=== PATIENT | female | born 1935 | race Caucasian/White ===

== ENCOUNTER 2019-07-09 10:27 | Inpatient (IN) | payer MEDICARE, SELFPAY ==
[2019-07-09] VITALS (56 sets, daily range): BP systolic 92–176; BP diastolic 41–95; PULSE 64–104; RESP 14–37; TEMP 36.4–36.9; O2SAT 89–100; BMI 29.2
--- NOTE | 2019-07-09 10:30 | W.ED.GENADLT ---
HPI - General Adult General: Stated complaint: BILAT HIP AND RIGHT WRIST PAIN S/P FALL Time Seen by Provider: 07/09/19 10:30 Discharge Plan Discharge Prescriptions: No Action metformin 1,000 mg tablet 1,000 mg PO BID Qty: 60 RF: 0 Coding Level of Care Code ED White Spooler for Jose King
--- NOTE | 2019-07-09 10:35 | ED_ITS ---
Entered by Debbie Humphreys, acting as scribe for Adam Quiles DO HPI - Fall General: Chief Complaint: Fall Stated Complaint: BILAT HIP AND RIGHT WRIST PAIN S/P FALL Time Seen by Provider: 07/09/19 10:30 History of Present Illness: HPI Narrative: 83yo female presents with bilateral hip and wrist pain after fall. She tripped over object in the floor. Patient denies any head injury or neck pain. Associated symptoms-after fall: Denies abdominal pain or chest pain Review of Systems Const: Denies: fever, chills, body aches, change in appetite, fatigue or malaise ENMT: Denies: throat pain, ear pain, nasal discharge or nasal congestion Card: Denies: chest pain, edema, shortness of breath on exertion or shortness of breath when lying down Resp: Denies: shortness of breath, productive cough or non-productive cough GI: Denies: abdominal pain, nausea, vomiting, vomiting blood, coffee grounds in vomit, diarrhea, constipation, bloating, blood in stool or black tarry stool : Denies: flank pain, difficulty urinating, painful urination, urinary frequency or urinary urgency Skin/Breast: Denies: rash or itching PFSH ED PFSH: Medical History (Updated 07/11/19 @ 00:16 by Adam Quiles DO) Diabetes Social History Smoking and tobacco status: former smoker Physical Exam Const: GENERAL APPEARANCE: cooperative and comfortable ORIENTATION/CONSCIOUSNESS: Yes awake, Yes oriented to person, Yes oriented to place and Yes oriented to time HENMT: COMMON NORMALS: normocephalic, head/scalp atraumatic, hearing grossly normal bilaterally, external ears normal, EAC's normal, TM's normal bilaterally, nasal mucous membranes and turbinates normal, moist oral mucous membranes and oropharynx normal HEAD & SCALP: normocephalic and atraumatic NOSE: nasal mucous membranes and turbinates normal EXTERNAL EAR: Yes external ears normal EXTERNAL AUDITORY CANAL: EAC's normal TYMPANIC MEMBRANE: TM's normal bilaterally Eye: COMMON NORMALS: PERRL, EOMs intact bilaterally, conjunctivae normal and no scleral icterus CONJUNCTIVA: Yes conjunctivae normal PUPIL: Yes PERRL Neck/C-Spine: COMMON NORMALS: full ROM, no lymphadenopathy, supple and no JVD OTHER: patient notes no neck pain Lymph: LYMPHATIC: no lymphadenopathy noted and no lymphedema noted Resp: COMMON NORMALS: normal respiratory effort, no retractions, no use of accessory muscles and clear to auscultation bilaterally AUSCULTATION: clear to auscultation bilaterally Cardio: COMMON NORMALS: no JVD, regular rate, regular rhythm and no murmurs RATE: regular rate RHYTHM: regular rhythm GI: COMMON NORMALS: soft to palpation and no hepatosplenomegaly AUSCULTATION: Yes normoactive bowel sounds PALPATION: Yes soft, No tender, No guarding and Yes no hepatosplenomegaly Extremity: COMMON NORMALS: normal capillary refill, no calf tenderness and no pedal edema RIGHT LOWER EXTREMITY: Yes hip joint (pain) LEFT LOWER EXTREMITY: Yes hip joint (pain) OTHER: During the course of stay there is development of a large hematoma over the distal right radius consistent with fracture. Neurovascularly intact. Volar splint applied from elbow to the fingertips. Neuro: SENSORIUM/ORIENTATION: Yes oriented to person, Yes oriented to place and Yes oriented to time Skin: COMMON NORMALS: no rashes or lesions noted GENERAL SKIN EXAM: no rashes or lesions noted Course ED course: Initial plain film of the hip x-ray was not immediately obvious CT confirmed. She also appears to have a fracture of the right wrist although that was read as normal. Organ to go ahead and admit her and have Ortho consult have discussed with Dr. Anson Benito. Vital Signs: Vital signs: Vital Signs Temperature 98.5 F 07/10/19 20:00 Pulse Rate 77 07/10/19 20:00 Respiratory Rate 18 07/10/19 20:00 Blood Pressure 144/70 07/10/19 20:00 Pulse Oximetry 93 07/10/19 20:00 MDM - Fall Lab Data: Labs: Lab Results 07/09/19 07/09/19 Range/Units 09:28 09:28 WBC 6.8 (4.0-10.0) 10^3/ uL RBC 3.77 L (4.1-5.3) 10^6/u L Hgb 11.7 (11.5-15.3) g/dL Hct 36.2 L (37.0-47.0) % MCV 96.0 (81-99) fL MCH 31.0 (28.0-34.0) pg MCHC 32.3 (30.0-36.0) g/dL RDW 13.7 (12.1-15.1) % Plt Count 229 (130-400) 10^3/c mm MPV 12.0 H (7.4-10.4) fL Neut % (Auto) 65.9 % Lymph % (Auto) 22.7 % [place] % (Auto) 7.6 % Eos % (Auto) 2.2 % Baso % (Auto) 0.3 % Neut # (Auto) 4.5 (1.8-7.7) 10^3/u L Lymph # (Auto) 1.6 (0.8-4.8) 10^3/u L [place] # (Auto) 0.5 (0.2-0.9) 10^3/u L Eos # (Auto) 0.2 (0.0-0.8) 10^3/u L Baso # (Auto) 0.0 (0.0-0.1) 10^3/u L Nucleated RBC % (a uto) 0 % Nucleated RBCs # 0.0 /100WBC Sodium 140 (136-145) mmol/L Potassium 3.9 (3.5-5.1) mmol/L Chloride 101 (98-107) mmol/L Carbon Dioxide 26 (22-29) mmol/L Anion Gap 16.9 (5-19) BUN 18 (8-23) mg/dL Creatinine 0.8 (0.5-0.9) mg/dL Glucose 155 H (65-115) mg/dL Calculated Osmolal ity 290 (285-295) mOsm/k g Calcium 10.0 (8.5-10.5) mg/dL Discharge Plan Discharge Patient Disposition: Home, Self-Care Clinical Impression: Closed intertrochanteric fracture of right femur Distal radius fracture, right Qualifiers: Encounter type: initial encounter Fracture type: closed Condition: Stable Discharge Diet: Usual diet Discharge Activity: Limit activity as instructed Interventions: ED Discharge Assessment Last Done: 07/09/19 14:41 Discharge Date/Time: 07/09/19 14:50 Coding Level of Care Code ED Antique Furniture Restorer for Jose Fwd Exam Comprehensive The documentation recorded by the scribe, Humphreys,Debbie Leadawn, accurately reflects the service I personally performed and the decisions made by me, Adam Quiles, Jul 09, 2019 10:27
--- NOTE | 2019-07-09 10:46 | XRR_ITS ---
PROCEDURE INFORMATION: Exam: XR Chest, 1 View Exam date and time: 07/09/2019 11:20 AM Age: 83 years old Clinical indication: Pain; Other: Fall; Additional info: Dyspnea/cough TECHNIQUE: Imaging protocol: XR of the chest Views: 1 view. COMPARISON: No relevant prior studies available. FINDINGS: Lungs: Unremarkable. No consolidation. Pleural space: Mild lower left pleural thickening or pleural fluid. Heart/Mediastinum: Mild cardiomegaly. Vasculature: Moderate aortic atherosclerotic calcification. Bones/joints: Suspect several left lateral rib fractures of uncertain age. XR/XR chest 1V portable [id number] IMPRESSION: Suspect several left lateral rib fractures of uncertain age. Mild lower left pleural thickening or pleural fluid.
--- NOTE | 2019-07-09 10:46 | XRR_ITS ---
PROCEDURE INFORMATION: Exam: XR Right Elbow Exam date and time: 07/09/2019 11:22 AM Age: 83 years old Clinical indication: Pain; Elbow; Right; Additional info: Fall pain TECHNIQUE: Imaging protocol: XR Right elbow. Views: 3 or more views. COMPARISON: No relevant prior studies available. FINDINGS: Bones/joints: No fracture or dislocation evident. Soft tissues: Normal. XR/XR elbow RT min 3V* [id number] IMPRESSION: No acute findings.
--- NOTE | 2019-07-09 10:46 | XRR_ITS ---
PROCEDURE INFORMATION: Exam: XR Right Hip with Pelvis when Performed Exam date and time: 07/09/2019 11:27 AM Age: 83 years old Clinical indication: Hip pain; Right hip TECHNIQUE: Imaging protocol: XR Right hip with pelvis when performed. Views: 1 view. COMPARISON: No relevant prior studies available. FINDINGS: Bones/joints: Acute minimally displaced right femoral intertrochanteric fracture. Soft tissues: Unremarkable. XR/XR hip RT 2-3V wo/w pel* [id number] IMPRESSION: Acute minimally displaced right femoral intertrochanteric fracture.
--- NOTE | 2019-07-09 10:46 | XRR_ITS ---
PROCEDURE INFORMATION: Exam: XR Right Knee Exam date and time: 07/09/2019 11:23 AM Age: 83 years old Clinical indication: Pain; Knee; Right TECHNIQUE: Imaging protocol: XR Right knee. Views: 3 views. COMPARISON: No relevant prior studies available. FINDINGS: Bones/joints: Right knee arthroplasty in place. Old displaced patellar fracture. No acute fracture evident. Soft tissues: Mild medial soft tissue prominence or swelling. XR/XR knee RT 3V* [id number] IMPRESSION: Mild medial soft tissue prominence or swelling. No acute fracture evident. Knee arthroplasty hardware in place. Old displaced patellar fracture.
--- NOTE | 2019-07-09 10:46 | XRR_ITS ---
PROCEDURE INFORMATION: Exam: XR Left Hip with Pelvis when Performed Exam date and time: 07/09/2019 11:27 AM Age: 83 years old Clinical indication: Hip pain; Left hip TECHNIQUE: Imaging protocol: XR Left hip with pelvis when performed. Views: 2 or 3 views. COMPARISON: No relevant prior studies available. FINDINGS: Bones/joints: Left hip well conjugated. No fracture evident. Soft tissues: Unremarkable. XR/XR hip LT 2-3V wo/w pel* [id number] IMPRESSION: No acute findings.
[2019-07-09 11:03] LABS: Basophils % 0.3 %; Eosinophils # 0.2 10^3/uL (0.0-0.8); Eosinophils % 2.2 %; Hematocrit 36.2 % (37.0-47.0); Hemoglobin 11.7 g/dL (11.5-15.3); Lymphocytes # 1.6 10^3/uL (0.8-4.8); Lymphocytes % 22.7 %; Mean Corpuscular HGB Conc 32.3 g/dL (30.0-36.0); Monocytes # 0.5 10^3/uL (0.2-0.9); Monocytes % 7.6 %; Neutrophils # 4.5 10^3/uL (1.8-7.7); Neutrophils % 65.9 %; Nucleated Red Blood Cells % 0 %; Platelet Count 229 10^3/cmm (130-400); Red Blood Count 3.77 10^6/uL (4.1-5.3); Red Cell Distribution Width 13.7 % (12.1-15.1); White Blood Count 6.8 10^3/uL (4.0-10.0)
--- NOTE | 2019-07-09 11:09 | XRR_ITS ---
PROCEDURE INFORMATION: Exam: XR Right Wrist Exam date and time: 07/09/2019 11:22 AM Age: 83 years old Clinical indication: Pain; Wrist; Right; Additional info: Fall. Pain TECHNIQUE: Imaging protocol: XR Right wrist. Views: 3 or more views. COMPARISON: No relevant prior studies available. FINDINGS: Bones/joints: There appears to be an old healed distal radial fracture deformity. No acute fracture evident. Soft tissues: Normal. XR/XR wrist RT min 3V* [id number] IMPRESSION: No acute fracture evident. Suspect an old healed distal radial fracture deformity.
[2019-07-09 11:32] LABS: Anion Gap 16.9 (5-19); Blood Urea Nitrogen 18 mg/dL (8-23); Carbon Dioxide 26 mmol/L (22-29); Chloride 101 mmol/L (98-107); Glucose 155 mg/dL (65-115); Osmolality Calculated 290 mOsm/kg (285-295); Potassium 3.9 mmol/L (3.5-5.1); Sodium 140 mmol/L (136-145)
[2019-07-09] MEDS: morphine 4 mg/mL SDV 1 mL 2 MG IVP (11:38)
--- NOTE | 2019-07-09 12:01 | PC.NURSE ---
SKIN TEAR COVERED WITH TAP AND COVER WITH TEGADERM
--- NOTE | 2019-07-09 12:14 | CTR_ITS ---
PROCEDURE INFORMATION: Exam: CT Right Lower Extremity Without Contrast, Hip Exam date and time: 07/09/2019 12:55 PM Age: 83 years old Clinical indication: Injury or trauma; Fall; Initial encounter; Blunt trauma; Hip; Right; Additional info: Hip pain TECHNIQUE: Imaging protocol: CT of the Right lower extremity without contrast was performed. Exam focused on the hip. Total DLP: 2103.64 mGy-cm Radiation optimization: All CT scans at this facility use at least one of these dose optimization techniques: automated exposure control; mA and/or kV adjustment per patient size (includes targeted exams where dose is matched to clinical indication); or iterative reconstruction. COMPARISON: CR XR hip RT 2-3V wo/w pel* [id number] 07/09/2019 10:54 AM FINDINGS: Bones/joints: Acute nondisplaced/minimally displaced right femoral intertrochanteric fracture. Soft tissues: Normal. CT/CT hip RT wo con* [id number] IMPRESSION: Acute nondisplaced/minimally displaced right femoral intertrochanteric fracture. Radiation Dose CTDIVOL = (mGy): DLP = 2103.64 (mGy-cm)
--- NOTE | 2019-07-09 12:29 | PC.NURSE ---
AFTER GETTING MORPHINE PATIENT DESATED APPROX TO 65 % EMD INFORMED, PATIENT PLACED ON NONREBREATHER. PATIENT TAKEN TO CT FOR HIPS
[2019-07-09] MEDS: ketorolac 30 mg/mL INJ 15 MG IVP (13:35)
--- NOTE | 2019-07-09 14:47 | PM.CONSULT ---
Providers/Reason For Consult Consulting Physican/Specialty*: Orthopedic surgery, Julito Griggs MD Reason for Consult*: Right hip fracture, right wrist fracture Attending Physician: Kelin Benito MD Primary Care Provider: Gorge Vu History of Present Illness History of Present Illness Solange Acevedo is a 83 year old female who tripped at home today over her oxygen cord. She describes falling forward attempting to catch herself with her right wrist and landing on her anterior right chest and hip. She described immediate pain. She was brought by EMS here to the [facility] emergency room radiographs revealed fractures of the right distal radius and right hip. The patient has history of chronic pain and is treated with hydrocodone at home. She lives alone. Meds/Allergies Home Medications and Allergies Home Medications Medication Instructions Recorded Confirmed Type metformin 1,000 mg tablet 1,000 mg PO BID #60 tab 06/29/19 07/09/19 Rx Calcium 500 1 tab PO BID 07/09/19 07/09/19 History ascorbic acid (vitamin C) [Vitamin 1,000 mg PO PRN 07/09/19 07/09/19 History C] hydrocodone-acetaminophen 1 tab PO Q6H PRN #15 tab 07/09/19 Rx ipratropium-albuterol [Combivent 1 puff INHALATION QID PRN 07/09/19 07/09/19 History Respimat] losartan 100 mg PO DAILY 07/09/19 07/09/19 History pioglitazone 30 mg PO DAILY 07/09/19 07/09/19 History Allergies Allergy/AdvReac Type Severity Reaction Status Date / Time Sulfa (Sulfonamide Allergy Unknown Unknown Verified 06/29/19 14:16 Antibiotics) PFSH Acute PFSH: Social History Smoking and tobacco status: former smoker Vitals/I&O/Wt Last Vital Signs Pulse 81 07/09/19 14:41 Resp 18 07/09/19 14:41 BP 126/95 07/09/19 14:41 Pulse Ox 89 L 07/09/19 14:41 Weight last 48 hrs Weight 192 lb Physical Exam Narrative: EXAM NARRATIVE: The patient is a heavyset her female supine in bed in no apparent distress. She complains of pain in her right wrist and hip Neck/C-Spine: COMMON NORMALS: supple GENERAL: No tender Back/Pelvis: THORACIC SPINE/UPPER BACK: No thoracic spinal tenderness LUMBAR SPINE/LOWER BACK: No lumbar spinal tenderness Extremity: RIGHT UPPER EXTREMITY: Yes wrist (The patient has swelling about her radial wrist and tenderness over the distal radius. She will flex and extend her ulnar 4 fingers although is limited due to pain. She will extend and oppose her thumb. She has a strong radial pulse. Sensation is intact in the right hand.) RIGHT LOWER EXTREMITY: Yes hip joint (The patient has pain with motion of her right hip. She has tenderness to palpation really anywhere throughout her right lower extremity but her hip pain does not seem to be accentuated with axial loading rather she complains of pain right grasper leg or knee. She will flex extend her right toes and ankle. Her sensation is intact light touch. She has a palpable dorsalis pedis pulse.) Data Imaging^: Xray Ortho: I personally reviewed and interpreted this imaging study as follows: (X-rays of the right distal radius and right hip are reviewed. The patient has an impacted fracture across the right distal radius with some loss of volar tilt. There is no obvious intra-articular displacement I can see. Her carpus is free of degenerative changes. Degenerative changes are seen about the thumb carpometacarpal joint. Radiographs of the right hip are unremarkable. I personally reviewed the patient's CT scan of the right hip. The patient appears to have a fracture of the right greater trochanter. I cannot see any clear extension into the neck or extending into the lesser trochanter.) Other Data: Attestation for Other Data: I personally reviewed and interpreted the following: (.) A&P Assessment and plan (1) Closed intertrochanteric fracture of right femur: At this point the fracture appears to be involving the only the greater trochanter. Treatment of this will be nonoperative and consist of protected weightbearing. The patient does have a bit more pain than what I would think she she should have with range of motion. This may be a complication of a chronic narcotic use. I would like to get an MRI of the hip to be sure there is no extension into the neck which would require surgery. Status: Suspected Code(s): S72.141A - Displaced intertrochanteric fracture of right femur, initial encounter for closed fracture (2) Distal radius fracture, right: This fracture is minimally displaced. I will put her in a Velcro forearm brace. I do not see future surgery is necessary for this. I encouraged her work on range of motion of her elbow and digit Status: Acute Qualifiers: Encounter type: initial encounter Fracture type: closed Code(s): S52.501A - Unspecified fracture of the lower end of right radius, initial encounter for closed fracture Coding Level of Care Code Acute Senior Internet Sales Consultant for [facility] Fwd Diagnoses Closed intertrochanteric fracture of right femur S72.141A Distal radius fracture, right S52.501A Encounter type: initial encounter Fracture type: closed
[2019-07-09] MEDS: enoxaparin 30 mg/0.3 mL Syringe SUBCUT (17:27)
[2019-07-09 17:51] LABS: Glucose Point of Care 285 mg/dL (70-110)
[2019-07-09 18:29] LABS: Add Urine Microscopic? YES; Bilirubin Urine Neg (NEGATIVE); Blood Urine 3+ (Negative); Glucose Urine UA 1+ (Normal); Ketones Urine Negative (Negative); Leukocyte Esterase Urine Negative (Negative); Nitrate Urine Negative (Negative); Protein Urine 1+ (Negative); Urine Appearance Hazy (CLEAR); Urine Color Yellow (Yellow); Urobilinogen Urine Norm (Negative); pH Urine 7 (5-7)
[2019-07-09 18:35] LABS: Bacteria Urine TRACE; Mucus Urine 1+; RBC Urine 50-80 /hpf (0-2); Squamous Epithelial Cell Urine 0-4 (0-5)
[2019-07-09 18:36] LABS: Add Urine Culture? Yes
[2019-07-09] MEDS: oxyCODONE-APAP 5-325 mg Tablet 1 TAB PO (20:48)
[2019-07-09 21:23] LABS: Glucose Point of Care 120 mg/dL (70-110)
--- NOTE | 2019-07-09 23:03 | PM.HP ---
Providers/Chief Complaint Admitting Physician: Kelin Benito MD Primary Care Provider: Gorge Vu Chief Complaint: BILAT HIP AND RIGHT WRIST PAIN S/P FALL History of Present Illness Solange Acevedo is a 83 year old female with PMH HTN, DM, COPD on home 02 for past ~20 yrs who presented with c/o mechanical fall after tripping over her 02 tubing earlier this morning. She has since been experiencing pain in her R wrist and R hip with inability to bear weight. No h/o head injury. CT hip showed Acute nondisplaced/minimally displaced right femoral intertrochanteric fracture. Wrist X ray showed old healed distal radial fracture deformity. No acute fracture evident. Old displaced patellar fracture on R knee. Cxr showed several left lateral rib fractures of uncertain age. She denies any current chest pain. Review of Systems General: Reports: 10 or more systems reviewed and unremarkable except in HPI and below Const: Denies: fever, chills or body aches Eyes: Denies: change in vision, blurry vision or photophobia ENMT: Reports: hoarseness; Denies: throat pain, enlarged tonsils, painful swallowing or nasal congestion Card: Denies: chest pain, palpitations, irregular heart rhythm, edema, swelling of feet/ankles, lightheadedness, pre-syncope, shortness of breath on exertion or shortness of breath when lying down Resp: Denies: shortness of breath, productive cough, non-productive cough, wheezing, stridor, pain on inspiration, change in phlegm color, coughing up blood or chest congestion GI: Denies: abdominal pain, nausea, vomiting, vomiting blood, coffee grounds in vomit, difficulty swallowing, heartburn/indigestion, diarrhea, constipation, cramping, change in stool character, blood in stool or black tarry stool : Denies: flank pain, difficulty urinating, painful urination, urinary frequency, urinary urgency, urinary hesitancy or blood in urine Musc: Denies: neck pain, back pain, extremity pain, joint swelling, joint warmth or deformity Neuro: Denies: headache, numbness in extremities, weakness in extremities, changes in sensation, difficulty walking, frequent falls, dizziness, vertigo, behavioral changes, slurred speech or seizure-like activity Psych: Denies: anxiety, depression, suicidal ideation or homicidal ideation Endo: Denies: excessive urination, excessive thirst, tired all the time, cold intolerance or hot flashes Kev/Lymph: Denies: easy bruising or easy bleeding Medications/Allergies Home Medications Medication Instructions Recorded Confirmed Last Taken Type Calcium 500 1 tab PO BID 07/09/19 07/09/19 07/08/19 History ascorbic acid (vitamin C) [Vitamin 1,000 mg PO PRN 07/09/19 07/09/19 Unknown History C] ipratropium-albuterol [Combivent 1 puff INHALATION QID PRN 07/09/19 07/09/19 Unknown History Respimat] losartan 100 mg PO DAILY 07/09/19 07/09/19 07/08/19 History pioglitazone 30 mg PO DAILY 07/09/19 07/09/19 07/08/19 History Allergies Allergy/AdvReac Type Severity Reaction Status Date / Time Sulfa (Sulfonamide Allergy Unknown Unknown Verified 06/29/19 14:16 Antibiotics) PFSH Acute PFSH: Medical History (Updated 07/10/19 @ 14:35 by Kelin Benito MD) Diabetes Social History Smoking and tobacco status: former smoker Vitals/I&O/Wt Last Vital Signs Temp 98.5 F 07/09/19 19:13 Pulse 80 07/09/19 21:50 Resp 18 07/09/19 21:44 BP 127/68 07/09/19 19:13 Pulse Ox 92 07/09/19 22:14 07/09/19 07/09/19 07/10/19 14:59 22:59 06:59 Output Total 975 / 975 Balance -975 / -975 Weight last 48 hrs Weight 87.09 kg Physical Exam Narrative: EXAM NARRATIVE: GEN: Awake, alert and oriented, no acute distress CVS: S1S2 N RS: CTA B/L Abd: Soft, nt/nd , bs+ CLINICAL DOCUMENTATION IMPROVEMENT SPECIALIST: no focal neuro deficits Data : 07/10/19 06:25 07/10/19 09:20 A&P Assessment and plan (1) Diabetes mellitus: Status: Acute Code(s): E11.9 - Type 2 diabetes mellitus without complications (2) Hypertension: Status: Acute Code(s): I10 - Essential (primary) hypertension (3) Closed intertrochanteric fracture of right femur: Status: Suspected Code(s): S72.141A - Displaced intertrochanteric fracture of right femur, initial encounter for closed fracture Additional A&P Information Admit to med/surg For the intertrochanteric fracture, patient was evaluated by Dr. Griggs in the Er. Treatment of this will be nonoperative and consist of protected weightbearing. MRI hip for further assessment Pain control with percocet q8h prn, currently well controlled Dm: insulin sliding scale HTN: continue home dose of Losartan COPD: on chronic home 02. Not currently exacerbated Dvt ppx: lovenox Full code Attestations Medical Necessity Statement*: intertrochanteric hip fracture Coding Level of Care Code Acute Innovations Paraprofessional for [facility] Fwd Diagnoses Diabetes mellitus E11.9 Hypertension I10 Closed intertrochanteric fracture of right femur S72.141A
[2019-07-10] VITALS (11 sets, daily range): BP systolic 125–166; BP diastolic 64–76; PULSE 69–85; RESP 18–20; TEMP 36.6–37.2; O2SAT 91–97
[2019-07-10] MEDS: oxyCODONE-APAP 5-325 mg Tablet 1 TAB PO ×2 (05:43→13:32)
[2019-07-10] MEDS: ketorolac 10 mg Tablet PO ×2 (05:44→17:39)
[2019-07-10 06:44] LABS: Basophils % 0.2 %; Eosinophils % 0.3 %; Hematocrit 32.4 % (37.0-47.0); Hemoglobin 10.4 g/dL (11.5-15.3); Lymphocytes % 10.1 %; Mean Corpuscular HGB Conc 32.1 g/dL (30.0-36.0); Mean Corpuscular Hemoglobin 31.4 pg (28.0-34.0); Mean Corpuscular Volume 97.9 fL (81-99); Monocytes % 9.9 %; Neutrophils # 7.9 10^3/uL (1.8-7.7); Neutrophils % 79.2 %; Nucleated Red Blood Cells % 0 %; Platelet Count 149 10^3/cmm (130-400); Red Blood Count 3.31 10^6/uL (4.1-5.3); Red Cell Distribution Width 14.2 % (12.1-15.1); White Blood Count 9.9 10^3/uL (4.0-10.0)
[2019-07-10 06:54] LABS: Glucose Point of Care 148 mg/dL (70-110)
[2019-07-10] MEDS: losartan 50 mg Tablet 100 MG PO (08:18)
[2019-07-10 09:47] LABS: Alanine Aminotransferase 10 U/L (0-33); Albumin Level 3.3 g/dL (3.5-5.2); Alkaline Phosphatase 53 IU/L (35-105); Anion Gap 15.3 (5-19); Aspartate Amino Transferase 13 U/L (0-32); Blood Urea Nitrogen 29 mg/dL (8-23); Calcium 8.7 mg/dL (8.5-10.5); Carbon Dioxide 26 mmol/L (22-29); Chloride 101 mmol/L (98-107); Creatinine Clr Calc Pharmacy 41.0345; Globulin 2.6 g/dL (1.3-4.6); Glucose 206 mg/dL (65-115); Osmolality Calculated 289 mOsm/kg (285-295); Potassium 4.3 mmol/L (3.5-5.1); Sodium 138 mmol/L (136-145); Total Bilirubin 0.4 mg/dL (0.15-1.2); Total Protein 5.9 g/dL (6.6-8.7)
[2019-07-10] MEDS: ondansetron 2 mg/ML SDV 2 mL 4 MG IVP ×3 (09:56→21:29)
[2019-07-10 11:55] LABS: Glucose Point of Care 219 mg/dL (70-110)
[2019-07-10] MEDS: lactulose oral liq 20 gm/30 mL UDC 10 GM PO (14:52)
[2019-07-10] MEDS: pantoprazole 40 mg SDV IVP (14:53)
[2019-07-10] MEDS: ipratropium-albuterol 3 mL Neb INHALATION (15:01)
[2019-07-10] MEDS: sodium chloride 0.9% 1,000 ML 50 ML IV (15:07)
--- NOTE | 2019-07-10 17:00 | P.PN_ITS ---
Subjective Subjective: Interval history: No acute events overnight. This morning on examination patient is lying comfortably in bed complaining of mild nausea. Patient states she always has nausea when she is on pain medications. She states pain is well controlled since medication was increased. Denies of any shortness of breath, headache, dizziness, palpitations. Labs noted. Vitals/I&O/Wt Last Vital Signs Temp 98.1 F 07/10/19 15:53 Pulse 83 07/10/19 15:53 Resp 20 H 07/10/19 15:53 BP 134/64 07/10/19 15:53 Pulse Ox 95 07/10/19 15:53 07/10/19 07/10/19 07/10/19 06:59 14:59 22:59 Intake Total 480 / 480 Balance 480 / 480 Weight last 48 hrs Weight 87.09 kg Physical Exam Narrative: EXAM NARRATIVE: GEN: Awake, alert and oriented, no acute distress CVS: S1S2 N RS: CTA B/L Abd: Soft, nt/nd , bs+ IMPLEMENTATION ENGINEER: no focal neuro deficits Urinary Catheter Management^: Campbell: Cath Placed During This Visit: no Reason for Continuing Indwelling Catheter: Required Immobilization for Trauma or Surgery or Anesthesia Data : 07/10/19 06:25 07/10/19 09:20 A&P Assessment and plan (1) Closed intertrochanteric fracture of right femur: Status: Suspected Code(s): S72.141A - Displaced intertrochanteric fracture of right femur, initial encounter for closed fracture (2) Diabetes mellitus: Status: Acute Code(s): E11.9 - Type 2 diabetes mellitus without complications (3) Hypertension: Status: Acute Code(s): I10 - Essential (primary) hypertension Additional A&P Information Closed intertrochanteric fracture of the right femur: Patient seen by Dr. Griggs. MRI hip pending. Orthopedic recommendations appreciated. Plan for OR tomorrow. Physical therapy/perioperative antibiotics as per Dr. Griggs. Given the symptoms of nausea and vomiting will decrease the pain medications to every 6 hours. DVT prophylaxis as per Dr. Griggs Acute kidney injury: Most likely from dehydration because of poor oral intake. Start patient on normal saline at 75 cc/h. Check BMP daily. We will hold off on losartan for now given the acute kidney injury. Type 2 diabetes mellitus: insulin sliding scale with meals and at bedtime. HTN: Given TEX will hold off on losartan for now. Will supplement with amlodipine 10 mg daily. COPD: on chronic home 02. Not currently exacerbated DuoNebs every 6 hours. Oxygen supplementation keeping oxygen saturation over 90%. Dvt ppx: lovenox 30 mg daily today. We will hold after midnight for possible OR tomorrow Full code Carbohydrate consistent diet today, n.p.o. after midnight. Attestations Medical Necessity Statement*: Closed intertrochanteric fracture of the right femur Time Spent in Patient Care: Greater than 35 minutes Coding Level of Care Code Acute Classification Case Manager for [facility] Fwd Diagnoses Closed intertrochanteric fracture of right femur S72.141A Diabetes mellitus E11.9 Hypertension I10
[2019-07-10 17:24] LABS: Glucose Point of Care 196 mg/dL (70-110)
[2019-07-10] MEDS: docusate sodium 100 mg Capsule PO (17:40)
[2019-07-10 21:35] LABS: Glucose Point of Care 176 mg/dL (70-110)
[2019-07-11] VITALS (33 sets, daily range): BP systolic 104–178; BP diastolic 43–80; PULSE 59–99; RESP 15–24; TEMP 36.8–37.3; O2SAT 84–100
--- NOTE | 2019-07-11 | XR_ITS ---
WS: [id number] Exam: C-arm imaging for interoperative intervention right hip HISTORY: Fractured right hip FINDINGS: Interoperatively a gamma nail is been inserted with a intramedullary mehnaz connection. The al ignment is satisfactory at the conclusion the exam. XR/XR femur RT min 2V* [id number] IMPRESSION: Satisfactory reduction of a fracture of the right hip with a gamma nail and int ramedullary pin.
--- NOTE | 2019-07-11 | SCC_ITS ---
Procedure Done: Open reduction internal fixation right intratrochanteric hip fracture with intramedullary device 64.3 seconds of fluoroscopic guidance, for a cumulative dose of 13.03 mGy, was provided to Dr. Griggs by the radiology department. C-arm images of the RIGHT femur were saved for the patient's permanent record. [facility]
[2019-07-11] MEDS: ipratropium-albuterol 3 mL Neb INHALATION ×3 (02:43→22:30)
[2019-07-11] MEDS: sodium chloride 0.9% 1,000 ML 50 ML IV (04:56)
[2019-07-11 06:31] LABS: Glucose Point of Care 181 mg/dL (70-110)
[2019-07-11 07:00] LABS: Alanine Aminotransferase 10 U/L (0-33); Albumin Level 3.2 g/dL (3.5-5.2); Alkaline Phosphatase 55 IU/L (35-105); Anion Gap 11.8 (5-19); Aspartate Amino Transferase 12 U/L (0-32); Blood Urea Nitrogen 25 mg/dL (8-23); Calcium 8.5 mg/dL (8.5-10.5); Carbon Dioxide 29 mmol/L (22-29); Chloride 105 mmol/L (98-107); Globulin 2.8 g/dL (1.3-4.6); Glucose 238 mg/dL (65-115); Osmolality Calculated 297 mOsm/kg (285-295); Potassium 4.8 mmol/L (3.5-5.1); Sodium 141 mmol/L (136-145); Total Bilirubin 0.3 mg/dL (0.15-1.2)
--- NOTE | 2019-07-11 08:54 | ANES.PREANE2 ---
Pre-Anesthetic Assessment Pre-Anesthetic Assessment: Height/Weight: Height 1.73 m Weight 92.487 kg Temp Pulse Resp BP Pulse Ox 98.7 F 89 18 128/70 92 07/11/19 07:46 07/11/19 08:23 07/11/19 08:23 07/11/19 07:46 07/11/19 08:23 Preop Diagnosis: right hip fx Proposed Procedure: Operation Date: 07/11/19 11:30 Proposed Procedures p Trochanteric Femoral Nail(Right) - Julito Griggs MD Last intake: Intake Last Liquid Date 07/10/19 Last Liquid Time 21:30 Last Solid Date 07/10/19 Last Solid Time 17:30 Social: Social History: Tobacco Packs per day: 1 Pack years: 50+ Comment: quit Exam: Pre-Anes Outpt Exam: alert, oriented x 3, clear to auscultation bilaterally and regular rate & rhythm Airway: Submandibular: WNL Cervical ROM: WNL MP: 2 Dentition: Caps Pulmonary: Pulmonary: COPD Comments: ' home 02 CV/HEM: CV/HEM: HTN Comments: 5 months 2 blocks/2FOS unable to MEJIA : Comments: frequency, urgency Metabolic: Metabolic: DM Comments: rx'd 20y, normally 105-150 Anesthetic Plan: ASA status: 3 Anesthesia: General Meds/Allergies Current Medications: Current Medications Generic Name Dose Route Start Last Admin Trade Name Freq PRN Reason Stop Dose Admin Albuterol/Ipratrop ium 3 ml 07/10/19 14:00 07/11/19 08:15 Duoneb INHALATION 3 ml Q6H RAFAELA Administration Docusate Sodium 100 mg 07/10/19 18:00 07/10/19 17:40 Colace PO 100 mg BID RAFAELA Administration Enoxaparin Sodium 30 mg 07/09/19 17:00 07/09/19 17:27 Lovenox SUBCUT 30 mg Q24H RAFAELA Administration Sodium Chloride 1,000 mls @ 75 ml s/hr 07/10/19 14:00 07/11/19 04:56 Sodium Chloride 0.9% IV 50 mls/hr .[id number] RAFAELA Administration Insulin Aspart 0 unit 07/10/19 18:00 07/10/19 21:29 Novolog SUBCUT 2 unit WM&BEDTIME RAFAELA Administration Protocol Ketorolac Trometha mine 10 mg 07/09/19 17:00 07/10/19 17:39 Toradol PO 07/14/19 16:59 10 mg Q6H PRN Administration MODERATE PAIN Lactulose 10 gm 07/10/19 13:54 07/10/19 14:52 Constulose PO 10 gm DAILY PRN Administration CONSTIPA Ondansetron HCl 4 mg 07/09/19 15:08 07/10/19 21:29 Zofran IVP 4 mg Q6H PRN Administration NAUSEA AND VOMITI NG Pantoprazole Sodiu m 40 mg 07/10/19 13:55 07/10/19 14:53 Protonix IVP 40 mg DAILY RAFAELA Administration PFSH Anesthesia PFSH: Medical History (Updated 07/11/19 @ 00:16 by Adam Quiles DO) Diabetes Social History Smoking and tobacco status: former smoker Data Anesthesia CBC & Chem 7: 07/10/19 06:25 07/11/19 05:54 Other Labs: Laboratory Results - last 48 hr 07/09/19 07/09/19 07/09/19 09:28 09:28 17:48 WBC 6.8 RBC 3.77 L Hgb 11.7 Hct 36.2 L MCV 96.0 MCH 31.0 MCHC 32.3 RDW 13.7 Plt Count 229 MPV 12.0 H Neut % (Auto) 65.9 Lymph % (Auto) 22.7 [place] % (Auto) 7.6 Eos % (Auto) 2.2 Baso % (Auto) 0.3 Neut # (Auto) 4.5 Lymph # (Auto) 1.6 [place] # (Auto) 0.5 Eos # (Auto) 0.2 Baso # (Auto) 0.0 Nucleated RBC % (auto) 0 Nucleated RBCs # 0.0 Sodium 140 Potassium 3.9 Chloride 101 Carbon Dioxide 26 Anion Gap 16.9 BUN 18 Creatinine 0.8 Glucose 155 H POC Glucose 285 Calculated Osmolality 290 Calcium 10.0 Total Bilirubin AST ALT Alkaline Phosphatase Total Protein Albumin Globulin Urine Color Urine Appearance Urine pH Ur Specific [place] Urine Protein Urine Glucose (UA) Urine Ketones Urine Blood Urine Nitrate Urine Bilirubin Urine Urobilinogen Ur Leukocyte Esterase Urine RBC Urine WBC Ur Squamous Epith Cells Urine Bacteria Urine Mucus 07/09/19 07/09/1907/09/20 18:18 21:13 06:25 WBC 9.9 RBC 3.31 L Hgb 10.4 L Hct 32.4 L MCV 97.9 MCH 31.4 MCHC 32.1 RDW 14.2 Plt Count 149 MPV 13.0 H Neut % (Auto) 79.2 Lymph % (Auto) 10.1 [place] % (Auto) 9.9 Eos % (Auto) 0.3 Baso % (Auto) 0.2 Neut # (Auto) 7.9 H Lymph # (Auto) 1.0 [place] # (Auto) 1.0 H Eos # (Auto) 0.0 Baso # (Auto) 0.0 Nucleated RBC % (auto) 0 Nucleated RBCs # 0.0 Sodium Potassium Chloride Carbon Dioxide Anion Gap BUN Creatinine Glucose POC Glucose 120 Calculated Osmolality Calcium Total Bilirubin AST ALT Alkaline Phosphatase Total Protein Albumin Globulin Urine Color Yellow Urine Appearance Hazy A Urine pH 7 Ur Specific [place] 1.010 Urine Protein 1+ H Urine Glucose (UA) 1+ Urine Ketones Negative Urine Blood 3+ H Urine Nitrate Negative Urine Bilirubin Neg Urine Urobilinogen Norm Ur Leukocyte Esterase Negative Urine RBC 50-80 H Urine WBC None Ur Squamous Epith Cells 0-4 H Urine Bacteria Trace Urine Mucus 1+ 07/10/19 07/10/19 07/10/19 06:49 09:20 11:45 WBC RBC Hgb Hct MCV MCH MCHC RDW Plt Count MPV Neut % (Auto) Lymph % (Auto) [place] % (Auto) Eos % (Auto) Baso % (Auto) Neut # (Auto) Lymph # (Auto) [place] # (Auto) Eos # (Auto) Baso # (Auto) Nucleated RBC % (auto) Nucleated RBCs # Sodium 138 Potassium 4.3 Chloride 101 Carbon Dioxide 26 Anion Gap 15.3 BUN 29 H Creatinine 1.2 H Glucose 206 H POC Glucose 148 219 Calculated Osmolality 289 Calcium 8.7 Total Bilirubin 0.4 AST 13 ALT 10 Alkaline Phosphatase 53 Total Protein 5.9 L Albumin 3.3 L Globulin 2.6 Urine Color Urine Appearance Urine pH Ur Specific [place] Urine Protein Urine Glucose (UA) Urine Ketones Urine Blood Urine Nitrate Urine Bilirubin Urine Urobilinogen Ur Leukocyte Esterase Urine RBC Urine WBC Ur Squamous Epith Cells Urine Bacteria Urine Mucus 07/10/19 07/10/19 07/11/19 17:21 20:29 05:54 WBC RBC Hgb Hct MCV MCH MCHC RDW Plt Count MPV Neut % (Auto) Lymph % (Auto) [place] % (Auto) Eos % (Auto) Baso % (Auto) Neut # (Auto) Lymph # (Auto) [place] # (Auto) Eos # (Auto) Baso # (Auto) Nucleated RBC % (auto) Nucleated RBCs # Sodium 141 Potassium 4.8 Chloride 105 Carbon Dioxide 29 Anion Gap 11.8 BUN 25 H Creatinine 0.9 Glucose 238 H POC Glucose 196 176 Calculated Osmolality 297 H Calcium 8.5 Total Bilirubin 0.3 AST 12 ALT 10 Alkaline Phosphatase 55 Total Protein 6.0 L Albumin 3.2 L Globulin 2.8 Urine Color Urine Appearance Urine pH Ur Specific [place] Urine Protein Urine Glucose (UA) Urine Ketones Urine Blood Urine Nitrate Urine Bilirubin Urine Urobilinogen Ur Leukocyte Esterase Urine RBC Urine WBC Ur Squamous Epith Cells Urine Bacteria Urine Mucus 07/11/19 06:28 WBC RBC Hgb Hct MCV MCH MCHC RDW Plt Count MPV Neut % (Auto) Lymph % (Auto) [place] % (Auto) Eos % (Auto) Baso % (Auto) Neut # (Auto) Lymph # (Auto) [place] # (Auto) Eos # (Auto) Baso # (Auto) Nucleated RBC % (auto) Nucleated RBCs # Sodium Potassium Chloride Carbon Dioxide Anion Gap BUN Creatinine Glucose POC Glucose 181 Calculated Osmolality Calcium Total Bilirubin AST ALT Alkaline Phosphatase Total Protein Albumin Globulin Urine Color Urine Appearance Urine pH Ur Specific [place] Urine Protein Urine Glucose (UA) Urine Ketones Urine Blood Urine Nitrate Urine Bilirubin Urine Urobilinogen Ur Leukocyte Esterase Urine RBC Urine WBC Ur Squamous Epith Cells Urine Bacteria Urine Mucus Micro: Microbiology 07/09/19 18:18 Urine Culture - Preliminary Urine,Clean Catch Cardiac Studies: No Data to Display
[2019-07-11] MEDS: pantoprazole 40 mg SDV IVP (09:29)
[2019-07-11] MEDS: docusate sodium 100 mg Capsule PO (09:29)
[2019-07-11] MEDS: amlodipine 10 mg Tablet PO (09:29)
[2019-07-11] MEDS: ketorolac 10 mg Tablet PO ×2 (09:32→15:24)
[2019-07-11] MEDS: sodium chloride 0.9% 1,000 ML 30 ML IV (11:45)
--- NOTE | 2019-07-11 12:14 | P.PN_ITS ---
Subjective Subjective: Interval history: Continued pain right hip Vitals/I&O/Wt Last Vital Signs Temp 98.4 F 07/11/19 11:30 Pulse 98 07/11/19 11:30 Resp 20 H 07/11/19 11:30 BP 144/57 07/11/19 11:30 Pulse Ox 95 07/11/19 11:30 07/10/19 07/11/19 07/11/19 22:59 06:59 14:59 Intake Total 240 / 960 690.833 / 1650.833 Output Total 400 / 400 Balance -160 / 560 690.833 / 1250.833 Weight last 48 hrs Weight 203 lb 14.4 oz Physical Exam Narrative: EXAM NARRATIVE: Pain with motion right hip Urinary Catheter Management^: Campbell: Cath Placed During This Visit: no Reason for Continuing Indwelling Catheter: Required Immobilization for Trauma or Surgery or Anesthesia Data : 07/10/19 06:25 07/11/19 05:54 Micro: Microbiology 07/09/19 18:18 Urine Culture - Preliminary Urine,Clean Catch A&P Assessment and plan (1) Closed intertrochanteric fracture of right femur: I discussed the radiographs with radiology on Thursday. They feel there is extension into the neck region. If this is the case the fracture certainly would be unstable and not suitable for weightbearing. I think her best option at this point would be to stabilize the femur and intramedullary device would be the best choice in this osteopenic bone. This would allow her to resume full weightbearing status and help control pain. I discussed risk of nonunion and malunion. Discussed risk of bleeding and infection. Discussed painful hardware that may need to be removed. Patient understands this and agrees to proceed. Status: Acute Code(s): S72.141A - Displaced intertrochanteric fracture of right femur, initial encounter for closed fracture Attestations Medical Necessity Statement*: As per primary team, anticipate discharge to care home tomorrow Coding Level of Care Code Acute Campus Security Officer for g Fwd Diagnoses Closed intertrochanteric fracture of right femur S72.141A
[2019-07-11] MEDS: fentaNYL 50 mcg/mL INJ 2mL IVP ×3 (12:34→14:37)
--- NOTE | 2019-07-11 14:17 | PM.OP ---
Operative Report Date of procedure: July 11, 2019 Pre-op Diagnosis: Right intertrochanteric hip fracture Post-op diagnosis: same Post-op Findings: Same same Procedure Done: Open reduction internal fixation right intratrochanteric hip fracture with intramedullary device Implants: Khurram gamma nail 11 mm x 340 mm, lag screw 10.5 mm x 100 mm Pathology: none sent Surgeon: Julito Griggs Anesthesia: General Estimated blood loss (mL): 200 Complications: None Condition: stable Disposition: PACU Brief History: The patient is a [id number] female who fell 2 nights ago with resulting right hip pain. A CT scan revealed a slightly displaced greater trochanter fracture with a nondisplaced crack extending into the femoral neck. Surgical stabilization was chosen to improve pain and allow mobilization of the patient with full weightbearing Procedure: The patient was taken to the operating room. He was given 1 g of Ancef. He was positioned on the fracture table with the right lower extremity in gentle traction. A timeout was performed. A 2 cm long incision was made proximal to the greater trochanter scalpel blade. Dissection was carried down to tip the greater trochanter. A guidepin was passed manually from the tip of the trochanter down the shaft. The proximal reamer was utilized to open up the proximal canal. An 11 mm by 340 mm Chancellor gamma nail was passed down the canal without difficulty. Under visualization of fluoroscopy a guidepin was driven up into the head and neck at 125? angle. It was measured at 105 mm in length. A 100 mm lag screw was then placed and locked into place with the proximal locking pole. Intraoperative imaging was obtained verifying satisfactory position of the hardware and reduction of the fracture. Deep tissues were closed with 0 Vicryl as were subcutaneous tissues. The skin was closed with skin yumiko. Sterile dressings were applied. The patient was extubated and taken to recovery room in stable condition.
--- NOTE | 2019-07-11 14:45 | SUR.PHASEI ---
1430 PT TO PACU EARLIER AWAKE, REPOSITIONED RT HIP DRESSSING X 2 D/I STRONG REGULAR PULSE NOTED TO RT FOOT, VSS PT C/O OF PAIN TO RT HIP OF 8 PT NOW ON 3LNC PT IS ON 2LNC AT HOME 1432 SEE PAIN MED GIVEN
--- NOTE | 2019-07-11 15:05 | P.PN_ITS ---
Subjective Subjective: Interval history: No acute events overnight. This morning on examination patient is lying comfortably in bed complaining of mild nausea and pain in her right hip. On schedule for OR today. Denies of any shortness of breath, headache, dizziness, palpitations. Labs noted. Vitals/I&O/Wt Last Vital Signs Temp 98.4 F 07/11/19 14:55 Pulse 85 07/11/19 14:55 Resp 24 H 07/11/19 14:55 BP 161/53 07/11/19 14:55 Pulse Ox 92 07/11/19 14:55 07/11/19 07/11/19 07/11/19 06:59 14:59 22:59 Intake Total 690.833 / 1650.833 600 / 600 Output Total 220 / 220 Balance 690.833 / 1250.833 380 / 380 Weight last 48 hrs Weight 92.487 kg Physical Exam Narrative: EXAM NARRATIVE: GEN: Awake, alert and oriented, no acute distress CVS: S1S2 N RS: CTA B/L Abd: Soft, nt/nd , bs+ MAINTENANCE SHOP WELDER: no focal neuro deficits Urinary Catheter Management^: Campbell: Cath Placed During This Visit: no Reason for Continuing Indwelling Catheter: Required Immobilization for Trauma or Surgery or Anesthesia Data : 07/10/19 06:25 07/11/19 05:54 Micro: Microbiology 07/09/19 18:18 Urine Culture - Preliminary Urine,Clean Catch A&P Assessment and plan (1) Closed intertrochanteric fracture of right femur: Status: Acute Code(s): S72.141A - Displaced intertrochanteric fracture of right femur, initial encounter for closed fracture (2) Diabetes mellitus: Status: Acute Code(s): E11.9 - Type 2 diabetes mellitus without complications (3) Hypertension: Status: Acute Code(s): I10 - Essential (primary) hypertension Additional A&P Information Closed intertrochanteric fracture of the right femur: Patient seen by Dr. Griggs. MRI hip pending. Orthopedic recommendations appreciated. Plan for OR today. Physical therapy/perioperative antibiotics as per Dr. Griggs. Given the symptoms of nausea and vomiting will decrease the pain medications to every 6 hours. DVT prophylaxis as per Dr. Griggs Acute kidney injury: Resolved. Most likely from dehydration because of poor oral intake. C/w normal saline at 75 cc/h. Check BMP daily. We will continue to hold off on losartan for now given the acute kidney injury. Type 2 diabetes mellitus: insulin sliding scale with meals and at bedtime. HTN: Given TEX will hold off on losartan for now. BP well controlled. C/w Amlo at 10 mg for now. COPD: on chronic home 02. Not currently exacerbated DuoNebs every 6 hours. Oxygen supplementation keeping oxygen saturation over 90%. Dvt ppx: lovenox 30 mg daily after OR. Full code Carbohydrate consistent diet Attestations Medical Necessity Statement*: Closed intertrochanteric fracture of the right femur Time Spent in Patient Care: 16 - 35 minutes Coding Level of Care Code Acute Supervisor Tower for [facility] Fwd Diagnoses Closed intertrochanteric fracture of right femur S72.141A Diabetes mellitus E11.9 Hypertension I10
[2019-07-11] MEDS: ondansetron 2 mg/ML SDV 2 mL 4 MG IVP (15:18)
--- NOTE | 2019-07-11 15:21 | SUR.PHASEI ---
1456 PT ALERT STATES PAIN IS BETTER, PT TAKING ICE CHIPS AND ASKING ABOUT FAMILY, RT HIP DRESSING X 2 D/I PT TO FLOOR PER BED ALERT AND TALKATIVE, NO FAMILY IN WAITING ROOM BUT SHE WAS IN ROOM. PT NURSE AT BEDSIDE VSS. 1505 BP 156/71, HR 80, RESP 18, SATS ON 3LNC 95% WITH SAT PROBE TO RT EAR NOT FINGER.
--- NOTE | 2019-07-11 15:28 | PC.NURSE ---
Patient returned from surgery. Vitals stable. Offered water, pain med and zofran per orders
[2019-07-11] MEDS: sodium chlor 0.9% + KCl 20 mEq 20 MEQ/1,000 ML BAG 80 MEQ IV (16:08)
[2019-07-11 16:53] LABS: Glucose Point of Care 188 mg/dL (70-110)
[2019-07-11] MEDS: enoxaparin 30 mg/0.3 mL Syringe SUBCUT (18:02)
[2019-07-11] MEDS: oxyCODONE-APAP 5-325 mg Tablet 1 TAB PO (20:10)
[2019-07-11 22:07] LABS: Glucose Point of Care 197 mg/dL (70-110)
[2019-07-12] VITALS (17 sets, daily range): BP systolic 112–155; BP diastolic 55–76; PULSE 84–102; RESP 16–20; TEMP 36.8–37.8; O2SAT 74–97
[2019-07-12] MEDS: ipratropium-albuterol 3 mL Neb INHALATION ×3 (02:37→15:22)
[2019-07-12] MEDS: oxyCODONE-APAP 5-325 mg Tablet 1 TAB PO ×2 (02:52→10:31)
[2019-07-12] MEDS: sodium chlor 0.9% + KCl 20 mEq 20 MEQ/1,000 ML BAG 80 MEQ IV (04:23)
[2019-07-12 06:06] LABS: Basophils % 0.3 %; Eosinophils # 0.1 10^3/uL (0.0-0.8); Eosinophils % 1.3 %; Hematocrit 27.2 % (37.0-47.0); Hemoglobin 8.3 g/dL (11.5-15.3); Lymphocytes # 0.8 10^3/uL (0.8-4.8); Lymphocytes % 10.6 %; Mean Corpuscular HGB Conc 30.5 g/dL (30.0-36.0); Mean Corpuscular Volume 101.5 fL (81-99); Mean Platelet Volume 12.4 fL (7.4-10.4); Monocytes # 0.7 10^3/uL (0.2-0.9); Monocytes % 9.8 %; Neutrophils # 5.8 10^3/uL (1.8-7.7); Neutrophils % 77.7 %; Nucleated Red Blood Cells % 0 %; Platelet Count 153 10^3/cmm (130-400); Red Blood Count 2.68 10^6/uL (4.1-5.3); Red Cell Distribution Width 13.9 % (12.1-15.1); White Blood Count 7.4 10^3/uL (4.0-10.0)
[2019-07-12 06:19] LABS: Alanine Aminotransferase 9 U/L (0-33); Albumin Level 2.8 g/dL (3.5-5.2); Alkaline Phosphatase 45 IU/L (35-105); Anion Gap 11.8 (5-19); Aspartate Amino Transferase 11 U/L (0-32); Blood Urea Nitrogen 25 mg/dL (8-23); Carbon Dioxide 23 mmol/L (22-29); Chloride 105 mmol/L (98-107); Globulin 2.4 g/dL (1.3-4.6); Glucose 165 mg/dL (65-115); Osmolality Calculated 281 mOsm/kg (285-295); Potassium 4.8 mmol/L (3.5-5.1); Sodium 135 mmol/L (136-145); Total Bilirubin 0.3 mg/dL (0.15-1.2); Total Protein 5.2 g/dL (6.6-8.7)
[2019-07-12 07:02] LABS: Glucose Point of Care 150 mg/dL (70-110)
--- NOTE | 2019-07-12 10:03 | P.PN_ITS ---
Subjective Subjective: Interval history: Still complains of pain Vitals/I&O/Wt Last Vital Signs Temp 98.3 F 07/12/19 07:54 Pulse 93 07/12/19 09:18 Resp 18 07/12/19 09:13 BP 155/76 07/12/19 07:54 Pulse Ox 91 07/12/19 09:13 07/11/19 07/12/19 07/12/19 22:59 06:59 14:59 Intake Total 100 / 700 980 / 1680 120 / 120 Output Total 600 / 820 Balance 100 / 480 380 / 860 120 / 120 Weight last 48 hrs Weight 203 lb 14.4 oz Physical Exam Narrative: EXAM NARRATIVE: Right wrist splint adjusted Right hip dressing clean and dry Urinary Catheter Management^: Campbell: Cath Placed During This Visit: yes, but has since been removed by the nurse Reason for Continuing Indwelling Catheter: Perioperative Use in Selected Surgeries Date Urinary Catheter Removed: 07/12/19 Time Urinary Catheter Discontinued: 06:09 Data : 07/12/19 05:33 07/12/19 05:33 Micro: Microbiology 07/09/19 18:18 Urine Culture - Final Urine,Clean Catch A&P Assessment and plan (1) Postoperative state: Patient may progress to weightbearing as tolerated on right lower extremity. Okay for [facility] to [facility]. Status: Acute Code(s): Z98.890 - Other specified postprocedural states (2) Distal radius fracture, right: Patient will unable to use right hand for weightbearing. May be able to accommodate with platform walker. Status: Acute Qualifiers: Encounter type: initial encounter Fracture type: closed Code(s): S52.501A - Unspecified fracture of the lower end of right radius, initial e ncounter for closed fracture Attestations Medical Necessity Statement*: As per medicine okay for discharge per Ortho Coding Level of Care Code Acute Tying Machine Operator for [facility] Diagnoses Postoperative state Z98.890 Distal radius fracture, right S52.501A Encounter type: initial encounter Fracture type: closed
[2019-07-12] MEDS: ondansetron 2 mg/ML SDV 2 mL 4 MG IVP (10:12)
[2019-07-12] MEDS: amlodipine 10 mg Tablet PO (10:34)
[2019-07-12] MEDS: pantoprazole 40 mg SDV IVP (10:40)
--- NOTE | 2019-07-12 11:24 | PC.CHAP ---
Pastoral Care Encounter/Spiritual Assessment Type of Contact [] Declined sap basis architect visit [] Patient/Family/Request visit [] Outpatient visit [] Follow-up visit [] Physician referral [] Code/Alert [x] Routine visit [] Staff referral [] Actively dying [] Patient sleeping [] Family support [] [] Out of room [] Palliative care [] [] Receiving care in room [] Pre-surgical visit [] Trauma [] Long length of stay [] ICU visit [] Other: Relational/Emotional Strength [x] Patient feels connected with others/family/visitors/staff [] Distress [] Loneliness/isolation [] Abandonment Spirituality of Patient [x] Person of Alena [x] Attends Mormon of their Alena [x] Believes in Prayer [] Reads Bible or Adventism materials [] There are Spiritual issues to be addressed Slug Press Operator Interventions [x] Prayer [x] Active listening [x] Non-anxious presence [x] Spiritual/emotional support [] Crisis/trauma care [x] Spiritual counseling [] Bereavement support [] Provided bereavement packet [] Provided Bible/devotional materials [] Provided toy/stuffed animal, coloring book to patient or family member [] Provided Communion [] Anointing/[place] [] Salvation [] Completed spiritual assessment [] Other: Impact on Illness or Injury [] Angry [] Fearful [] Anxious [] Often cries [] Exhaustion [] Unable to work [] Unable to attend pentecostal [] Unable to walk/stand [] Unable to read [] Unable to drive [] Unable to eat/drink [] Unable to sleep [] Unable to be with family [] Patient intubated [x] Other: Summary Patient was being attended to by her sister in law. Time spent with patient 5 minutes
--- NOTE | 2019-07-12 11:32 | P.PN_ITS ---
Subjective Subjective: Interval history: Last 24 hours patient underwent ORIF yesterday. Postop day 1 today. On examination she is still complains of pain. States she does not have any more nausea, vomiting. States her last bowel movement was almost a week ago. Denies of having abdominal pain at present. She is sitting in chair and worked well with physical therapy in the morning today. Vitals/I&O/Wt Last Vital Signs Temp 98.5 F 07/12/19 11:20 Pulse 87 07/12/19 11:20 Resp 16 07/12/19 11:20 BP 116/70 07/12/19 11:20 Pulse Ox 88 L 07/12/19 11:20 07/11/19 07/12/19 07/12/19 22:59 06:59 14:59 Intake Total 100 / 700 980 / 1680 120 / 120 Output Total 600 / 820 Balance 100 / 480 380 / 860 120 / 120 Weight last 48 hrs Weight 92.487 kg Physical Exam Narrative: EXAM NARRATIVE: GEN: Awake, alert and oriented, no acute distress CVS: S1S2 N RS: CTA B/L Abd: Soft, nt/nd , bs+ RAILROAD CAR LETTERER: no focal neuro deficits Urinary Catheter Management^: Campbell: Cath Placed During This Visit: yes, but has since been removed by the nurse Reason for Continuing Indwelling Catheter: Perioperative Use in Selected [place] rgeries Date Urinary Catheter Removed: 07/12/19 Time Urinary Catheter Discontinued: 06:09 Data : 07/12/19 05:33 07/12/19 05:33 Micro: Microbiology 07/09/19 18:18 Urine Culture - Final Urine,Clean Catch A&P Assessment and plan (1) Closed intertrochanteric fracture of right femur: Status: Acute Code(s): S72.141A - Displaced intertrochanteric fracture of right femur, initial encounter for closed fracture (2) Diabetes mellitus: Status: Acute Code(s): E11.9 - Type 2 diabetes mellitus without complications (3) Hypertension: Status: Acute Code(s): I10 - Essential (primary) hypertension Additional A&P Information Closed intertrochanteric fracture of the right femur: Postop day 1 from ORIF. Orthopedic recommendations appreciated. Physical therapy, pain medications as per orthopedics. Will reduce the narcotics to prevent from oversedation. Anticoagulation as per orthopedics. We will continue to monitor hemoglobin daily. Anemia: Hemoglobin today 8.3. Check iron panel start patient on oral iron supplementation. Check hemoglobin in morning. Acute kidney injury: Resolved. Most likely from dehydration because of poor oral intake. DC fluid today as patient is tolerating oral diet well. Check BMP daily. We will continue to hold off on losartan for now given the acute kidney injury. Type 2 diabetes mellitus: insulin sliding scale with meals and at bedtime. HTN: Given TEX will hold off on losartan for now. BP well controlled. C/w Amlo at 10 mg for now. COPD: on chronic home 02. Not currently exacerbated DuoNebs every 6 hours. Oxygen supplementation keeping oxygen saturation over 90%. Bowel regimen today Dvt ppx: lovenox 30 mg daily after OR. Full code Carbohydrate consistent diet. Dispo: SNF placement. Papers have been faxed to [place]. Waiting for authorization. Attestations Medical Necessity Statement*: Postop management. Time Spent in Patient Care: Greater than 35 minutes Coding Level of Care Code Acute Nutrition Director for [facility] Diagnoses Closed intertrochanteric fracture of right femur S72.141A Diabetes mellitus E11.9 Hypertension I10
[2019-07-12] MEDS: polyethylene glycol 3350 Pkt 17 gm PO (11:48)
[2019-07-12] MEDS: lactulose oral liq 20 gm/30 mL UDC 30 GM PO (11:48)
[2019-07-12 12:24] LABS: Glucose Point of Care 243 mg/dL (70-110)
--- NOTE | 2019-07-12 14:29 | PC.SOCIAL ---
Pg 2 IMM Explained to pt Pg 2 IMM. Pt verbally understands. No questions voiced. Provided pt a signed copy & left on pt's bedside table. Signed, dated, & timed a signed copy & placed in chart.
[2019-07-12 16:18] LABS: Glucose Point of Care 190 mg/dL (70-110)
[2019-07-12] MEDS: enoxaparin 30 mg/0.3 mL Syringe SUBCUT (16:40)
[2019-07-12 21:03] LABS: ABG PH Result 7.41 (7.35-7.45); Base Excess ABG -0.6 mmol/L (-2.0-2.0); Blood Gas Sample Site Brachial, left; Blood Gas Sample Type Arterial; Oxygen Device OXY MASK; PO2 ABG 68.3 mmHg (80.0-100.0)
--- NOTE | 2019-07-12 21:07 | CTR_ITS ---
PROCEDURE INFORMATION: Exam: CT Angiography Chest With Contrast Exam date and time: 07/12/2019 10:13 PM Age: 83 years old Clinical indication: Shortness of breath; Prior surgery; Surgery type: Lung; Patient HX: RT femur SX yesterday, increased SOB; Additional info: R/O pe, post op TECHNIQUE: Imaging protocol: Computed tomographic angiography of the chest with intravenous contrast. 3D rendering: MIP and/or 3D reconstructed images were created by the technologist. Total DLP: 638.2 mGy-cm Radiation optimization: All CT scans at this facility use at least one of these dose optimization techniques: automated exposure control; mA and/or kV adjustment per patient size (includes targeted exams where dose is matched to clinical indication); or iterative reconstruction. Contrast material: OMNI 300; Contrast volume: 84 ml; Contrast route: 20; COMPARISON: CR XR chest 1V portable [id number] 07/09/2019 11:09 AM FINDINGS: Pulmonary arteries: Normal. No pulmonary emboli. Aorta: Unremarkable. No aortic aneurysm. No aortic dissection. Lungs: Centrilobular emphysematous changes. Left lower lobe atelectasis versus infiltrate. Pleural space: Left upper lobe anterior segment 11 mm nodule abutting the pleural surface. Small left pleural effusion. Heart: Coronary artery atherosclerotic calcifications. Gallbladder and bile ducts: Apparent gallbladder dilation, ultrasound could further characterize this. Kidneys and ureters: Bilateral renal cysts. Lymph nodes: Unremarkable. No enlarged lymph nodes. Bones/joints: Unremarkable. No acute fracture. Soft tissues: Unremarkable. CT/CT angio chest PE protcl [id number] IMPRESSION: 1. Negative for pulmonary embolus. 2. Centrilobular emphysematous changes. 3. Small left pleural effusion. 4. Left lower lobe atelectasis versus infiltrate. 5. Apparent gallbladder dilation, ultrasound could further characterize this. 6. Bilateral renal cysts. 7. Coronary artery atherosclerotic calcifications. 8. Left upper lobe anterior segment 11 mm nodule abutting the pleural surface. Highly suspicious nodule(s). Consider PET/CT, or tissue sampling.(emilia Grove al., Fleischner [employer], 2017) Radiation Dose CTDIVOL = (mGy): DLP = 638.2 (mGy-cm)
[2019-07-12 21:45] LABS: Glucose Point of Care 267 mg/dL (70-110)
[2019-07-12] MEDS: FUROsemide 10 mg/mL SDV 2mL 20 MG IVP (23:12)
[2019-07-13] VITALS (40 sets, daily range): BP systolic 117–154; BP diastolic 53–74; PULSE 84–100; RESP 13–25; TEMP 36.9–37.5; O2SAT 88–98
[2019-07-13] MEDS: ipratropium-albuterol 3 mL Neb INHALATION ×3 (02:31→22:06)
[2019-07-13] MEDS: cefTRIAXone 1,000 MG in sodium chloride 0.9% (plus) 50 ML 100 MG IV (03:12)
[2019-07-13 06:46] LABS: Basophils % 0.1 %; Eosinophils % 0.5 %; Hematocrit 25.5 % (37.0-47.0); Hemoglobin 7.9 g/dL (11.5-15.3); Lymphocytes # 0.8 10^3/uL (0.8-4.8); Lymphocytes % 9.8 %; Mean Corpuscular Hemoglobin 31.7 pg (28.0-34.0); Mean Corpuscular Volume 102.4 fL (81-99); Mean Platelet Volume 12.1 fL (7.4-10.4); Monocytes # 0.8 10^3/uL (0.2-0.9); Monocytes % 10.3 %; Neutrophils # 6.1 10^3/uL (1.8-7.7); Neutrophils % 78.5 %; Nucleated Red Blood Cells % 0 %; Platelet Count 174 10^3/cmm (130-400); Red Blood Count 2.49 10^6/uL (4.1-5.3); Red Cell Distribution Width 13.9 % (12.1-15.1); White Blood Count 7.8 10^3/uL (4.0-10.0)
[2019-07-13 06:46] LABS: Glucose Point of Care 139 mg/dL (70-110)
[2019-07-13 09:18] LABS: Glucose Point of Care 162 mg/dL (70-110)
[2019-07-13 09:28] LABS: ABG PCO2 36.7 mmHg (35-45); ABG PH Result 7.47 (7.35-7.45); Alveolar-Arterial Oxygen Gradi 172.9 mmHg (5-10); Arterial Blood Gas Hematocrit 27.3 % (37-47); Base Excess ABG 2.8 mmol/L (-2.0-2.0); Blood Gas Allen Test Pos; Blood Gas Sample Site Radial, left; Blood Gas Sample Type Arterial; Carboxyhemoglobin 1.3 %THgb (0.4-20.1); HCO3 ABG 26.6 mmol/L (22-26); HGB O2 Sat 91.3 % (95-100); Ionized Calcium Level - ABG 1.1 mmol/L (1.1-1.4); Methemoglobin 1.2 % (0.4-1.5); Oxygen Device NC; Oxygen Saturation ABG 93.7; PO2 ABG 62.2 mmHg (80.0-100.0); Potassium Level - ABG 4.2 mmol/L (3.5-5.0); Total Hemoglobin 8.9 g/dL (12-16)
--- NOTE | 2019-07-13 09:52 | CT_ITS ---
WS: [id number] CT HEAD TECHNIQUE: Noncontrast CT of the head obtained from the skullbase to the vertex. CLINICAL INFORMATION: r/o stroke COMPARISON: None. DLP: 689.[address] scans at [facility] use at least one of these dose optimization techniques: automat ed exposure control; mA and/or kV adjustment per patient size (includes targeted exams where dose is matched to clinical indication); or iterative reconstruction. FINDINGS: No evidence of intracranial hemorrhage or mass effect. Ventricular system and basal cisterns are knowles nt. Moderate small vessel changes with moderate parenchymal volume loss. Incidental basal ganglia caitlyn cifications. No extra-axial fluid collections. No evidence of mass or mass effect. Normal otto-white differentiation. Paranasal sinuses and mastoid air cells are well aerated. .Normal visualized soft tissues. CT/CT head wo con* [id number] IMPRESSION: 1. No evidence of intracranial hemorrhage or mass effect. 2. . Moderate small vessel changes with moderate parenchymal volume loss. 3. No acute intracranial findings.
[2019-07-13 11:09] LABS: Bilirubin Urine Neg (NEGATIVE); Blood Urine 2+ (Negative); Glucose Urine UA Norm (Normal); Ketones Urine Negative (Negative); Leukocyte Esterase Urine Negative (Negative); Nitrate Urine Negative (Negative); Protein Urine Neg (Negative); Urine Appearance Clear (CLEAR); Urine Color Straw (Yellow); Urobilinogen Urine Norm (Negative); pH Urine 5 (5-7)
[2019-07-13 11:14] LABS: Glucose Point of Care 164 mg/dL (70-110)
[2019-07-13 11:23] LABS: Add Urine Culture? No; Amorphous Sediment Urine 1+; Bacteria Urine TRACE; RBC Urine 0-4 /hpf (0-2); Squamous Epithelial Cell Urine 0-4 (0-5)
[2019-07-13] MEDS: amlodipine 10 mg Tablet PO (11:41)
[2019-07-13] MEDS: FUROsemide 10 mg/mL SDV 2mL 20 MG IVP (11:42)
[2019-07-13] MEDS: oxyCODONE-APAP 5-325 mg Tablet 1 TAB PO (13:58)
[2019-07-13] MEDS: ondansetron 2 mg/ML SDV 2 mL 4 MG IVP (14:00)
--- NOTE | 2019-07-13 15:15 | MR_ITS ---
WS: [id number] MRI HEAD WITHOUT CONTRAST TECHNIQUE: Sagittal T1, T2 axial, T2 axial FLAIR, axial and coronal T1 images, axial susceptibility w eighted imaging, axial diffusion weighted images, and coronal T2 images were obtained. CLINICAL INFORMATION: r/o stroke COMPARISON: CT July 23, 2019 FINDINGS: Large area of restricted diffusion involving the left parietal lobe extending into the left occipital and superior temporal lobes. Slight extension to the posterior subinsular cortex. Findings are consi stent with acute ischemia. Additional patchy restricted diffusion right cerebellum with mild edema co nsistent with acute ischemia. Right cerebellar ischemia measures 2.1 CM. Additional punctate focus of restricted diffusion right parietal lobe consistent with an additional focus of acute ischemia. Find ings are suspicious for embolic etiology considering multiple vascular distributions. Minimal edema in the left parietal and occipital lobes. No significant mass effect. Mild effacement o f the left parietal sulci. No midline shift. No hydrocephalus. Moderate small vessel changes. Moderate parenchymal volume loss. Tiny chronic lacunar infarcts right cerebellum. Normal vascular flow voids at the skull base. No extra axial fluid collections. Paranasal sinuses are well aerated. Mucosal thickening in the right greater than left mastoid air cells. MR/MR head wo con* [id number] IMPRESSION: 1. Large area of restricted diffusion involving the left parieto-occipital lob e extending into the superotemporal lobe consistent with acute ischemia. Mild l ocalized edema. No significant midline shift. 2. Additional acute infarct in the right cerebellum measuring 2.1 cm with mild edema. 3. Additional punctate infarct in the right parietal lobe consistent with an a dditional focus of acute ischemia. 4. Findings suspicious for embolic phenomenon considering multiple vascular di stributions. 5. Moderate small vessel changes with moderate parenchymal volume loss.
[2019-07-13] MEDS: iohexol 350 mg/mL 100 mL Btl IV (15:50)
[2019-07-13 17:16] LABS: Glucose Point of Care 181 mg/dL (70-110)
--- NOTE | 2019-07-13 17:31 | P.PN_ITS ---
Subjective Subjective: Interval history: In last 24 hours last night patient was hypoxic so CTA chest was done which was negative and she was given lasix 40 mg IV. On examination today morning patient was confused, having expressive aphasia, hemodynamically stable, afebrile so CT head, urinalysis, ABG, random blood sugar were done which were within normal limits and MRI brain without contrast was done. Labs, MRI brain results noted. Vitals/I&O/Wt Last Vital Signs Temp 98.4 F 07/13/19 16:00 Pulse 96 07/13/19 16:00 Resp 20 H 07/13/19 16:00 BP 135/70 07/13/19 16:00 Pulse Ox 91 07/13/19 16:00 07/13/19 07/13/19 07/13/19 06:59 14:59 22:59 Output Total 600 / 1900 1100 / 1100 Balance -600 / -700 -1100 / -1100 Physical Exam Narrative: EXAM NARRATIVE: GEN: Acute distress with confusion, expressive aphasia, pallor present, AO x3 Extremities: CVS: S1S2 N RS: CTA B/L Abd: Soft, nt/nd , bs+ MORTGAGE COUNSELOR: expressive aphasia, power b/l 5/5, pupil b/l equal and reactive, plantars bilaterally downgoing Extremities: Right wrist in soft cast, hip: Clear postoperative bandage present no soakage. Urinary Catheter Management^: Campbell: Cath Placed During This Visit: yes, but has since been removed by the nurse Reason for Continuing Indwelling Catheter: Perioperative Use in Selected Surgeries Date Urinary Catheter Removed: 07/12/19 Time Urinary Catheter Discontinued: 06:09 Data : 07/13/19 05:30 07/12/19 05:33 A&P Assessment and plan (1) Stroke: Status: Acute Code(s): I63.9 - Cerebral infarction, unspecified (2) Delirium: Status: Acute Code(s): R41.0 - Disorientation, unspecified (3) Postoperative state: Status: Acute Code(s): Z98.890 - Other specified postprocedural states (4) Closed intertrochanteric fracture of right femur: Status: Acute Code(s): S72.141A - Displaced intertrochanteric fracture of right femur, initial encounter for closed fracture (5) Diabetes mellitus: Status: Acute Code(s): E11.9 - Type 2 diabetes mellitus without complications (6) Hypertension: Status: Acute Code(s): I10 - Essential (primary) hypertension (7) Distal radius fracture, right: Status: Acute Qualifiers: Encounter type: initial encounter Fracture type: closed Code(s): S52.501A - Unspecified fracture of the lower end of right radius, initial encounter for closed fracture Additional A&P Information Delirium: Acute stroke on plain MRI. As patient is recent postop, we do not have a proper last normal known patient is not a candidate for TPA. Aspirin 325 mg stat followed by 81 mg daily, Plavix 75 mg daily, atorvastatin 80 mg daily. Lipid panel, HbA1c Echocardiogram, carotid Dopplers, every neurochecks, Occupational Therapy evaluation, physical therapy evaluation for stroke. Case discussed with Dr. Felix. Recommendations appreciated. Patient is supposed to follow-up with Dr. Felix in 2 weeks after discharge. Closed intertrochanteric fracture of the right femur: Postop day 3 from ORIF. Orthopedic recommendations appreciated. Physical therapy, pain medications as per orthopedics. Will reduce the narcotics to prevent from oversedation. We will continue to monitor hemoglobin daily. Anemia: Hemoglobin today 7.9. Check iron panel start patient on oral iron supplementation. Check hemoglobin in morning. We will keep hemoglobin around 8 given the new stroke now. Acute kidney injury: Resolved. Most likely from dehydration because of poor oral intake. DC fluid today as patient is tolerating oral diet well. Check BMP daily. We will continue to hold off on losartan for now given the acute kidney injury. Type 2 diabetes mellitus: insulin sliding scale with meals and at bedtime. HTN: Given TEX will hold off on losartan for now. BP well controlled. DC amlodipine as required permissible hypertension for 24 hours post stroke. Will treat for BP of more than 200 mmhg COPD: on chronic home 02. Not currently exacerbated DuoNebs every 6 hours. Oxygen supplementation keeping oxygen saturation over 90%. Bowel regimen today Dvt ppx: lovenox 40 mg daily after OR. Full code Carbohydrate consistent diet. Dispo: SNF placement. Papers have been faxed to [facility]. Waiting for authorization. Attestations Medical Necessity Statement*: Stroke, post OP Time Spent in Patient Care: Greater than 35 minutes (>than 50% of time spent in counselling and/or direct pt care on unit) . Coding Level of Care Code Acute Saddle Mechanic for g Fwd Diagnoses Stroke I63.9 Delirium R41.0 Postoperative state Z98.890 Closed intertrochanteric fracture of right femur S72.141A Diabetes mellitus E11.9 Hypertension I10 Distal radius fracture, right S52.501A Encounter type: initial encounter Fracture type: closed
[2019-07-13] MEDS: ketorolac 10 mg Tablet PO (17:48)
[2019-07-13] MEDS: enoxaparin 40 mg/0.4 mL Syringe SUBCUT (17:49)
[2019-07-13] MEDS: atorvastatin 40 mg Tablet 80 MG PO (17:53)
[2019-07-13] MEDS: aspirin 325 mg EC Tablet PO (17:53)
--- NOTE | 2019-07-13 19:53 | PC.NURSE ---
TRANSFER TO ICU Orders to transfer pt to ICU. Was taken to ICU 6 via bed after report given. Is alert but confused. Able to understand words but has some word salad. Denies pain or discomfort. O2 in place at 5l per NC. Daughter is aware of transfer and updated via phone
[2019-07-13] MEDS: sodium chloride 0.9% 1,000 ML 50 ML IV (20:36)
[2019-07-13 20:42] LABS: Glucose Point of Care 157 mg/dL (70-110)
[2019-07-14] VITALS (28 sets, daily range): BP systolic 123–174; BP diastolic 44–92; PULSE 70–101; RESP 12–33; TEMP 36.2; O2SAT 85–99
[2019-07-14] MEDS: ipratropium-albuterol 3 mL Neb INHALATION ×4 (04:22→22:09)
[2019-07-14 04:25] LABS: Basophils % 0.2 %; Eosinophils # 0.3 10^3/uL (0.0-0.8); Eosinophils % 4.4 %; Hematocrit 24.6 % (37.0-47.0); Hemoglobin 7.9 g/dL (11.5-15.3); Lymphocytes # 1.1 10^3/uL (0.8-4.8); Lymphocytes % 18.6 %; Mean Corpuscular HGB Conc 32.1 g/dL (30.0-36.0); Mean Corpuscular Hemoglobin 31.6 pg (28.0-34.0); Mean Corpuscular Volume 98.4 fL (81-99); Mean Platelet Volume 11.7 fL (7.4-10.4); Monocytes # 0.6 10^3/uL (0.2-0.9); Monocytes % 9.5 %; Neutrophils # 4.1 10^3/uL (1.8-7.7); Neutrophils % 66.8 %; Nucleated Red Blood Cells % 0 %; Platelet Count 192 10^3/cmm (130-400); Red Cell Distribution Width 13.5 % (12.1-15.1); White Blood Count 6.1 10^3/uL (4.0-10.0)
[2019-07-14 04:51] LABS: Alanine Aminotransferase 8 U/L (0-33); Alkaline Phosphatase 50 IU/L (35-105); Anion Gap 15.1 (5-19); Aspartate Amino Transferase 12 U/L (0-32); Blood Urea Nitrogen 22 mg/dL (8-23); Calcium 8.7 mg/dL (8.5-10.5); Carbon Dioxide 27 mmol/L (22-29); Chloride 102 mmol/L (98-107); Globulin 2.6 g/dL (1.3-4.6); Glucose 125 mg/dL (65-115); Osmolality Calculated 288 mOsm/kg (285-295); Potassium 4.1 mmol/L (3.5-5.1); Sodium 140 mmol/L (136-145); Total Bilirubin 0.4 mg/dL (0.15-1.2); Total Protein 5.6 g/dL (6.6-8.7)
[2019-07-14 06:34] LABS: Chol HDL Ratio 2.76 mg/dL (0.0-4.40); Cholesterol 124 mg/dL (0-200); HDL Cholesterol 45 mg/dL (60-100); LDL Cholesterol Calculated 61 mg/dL (50-129); Triglycerides 90 mg/dL (0-150); VLDL Cholestrol Calculation 18 mg/dL (0-30)
[2019-07-14 08:01] LABS: Glucose Point of Care 143 mg/dL (70-110)
[2019-07-14] MEDS: ketorolac 10 mg Tablet PO ×2 (08:32→18:29)
[2019-07-14] MEDS: ondansetron 2 mg/ML SDV 2 mL 4 MG IVP ×2 (08:38→14:56)
[2019-07-14] MEDS: pantoprazole DR 40 mg Tablet PO (09:30)
[2019-07-14] MEDS: clopidogrel 75 mg Tablet PO (09:30)
[2019-07-14] MEDS: aspirin 81 mg EC Tablet PO (09:30)
[2019-07-14] MEDS: oxyCODONE-APAP 5-325 mg Tablet 1 TAB PO ×2 (10:15→16:51)
--- NOTE | 2019-07-14 10:40 | PC.SOCIAL ---
IMM Update Pg 2 of IMM given and explained to patient. Verbalized understanding. Copy provided to patient and copy placed in chart.
[2019-07-14 11:37] LABS: Glucose Point of Care 180 mg/dL (70-110)
--- NOTE | 2019-07-14 14:08 | PC.OT ---
OT RE-EVALUATION ATTEMPTED. PATIENT IS CURRENTLY RECEIVING ULTRASOUND AND NURSING REPORTS THAT SHE IS VERY TIRED. FAMILY AGREEABLE TO A.M ATTEMPT TOMORROW.
--- NOTE | 2019-07-14 14:56 | P.PN_ITS ---
Subjective Subjective: Interval history: No acute events overnight. Patient has not had any further neurological status changes. On examination she is lying comfortably in bed, not confused is able to speak with me into words but is not able to formulate sentences. No nausea, vomiting, palpitations, headache overnight. On telemetry patient has remained. Labs and vital signs noted. All the questions answered from her sister. Vitals/I&O/Wt Last Vital Signs Temp 97.1 F L 07/14/19 08:00 Pulse 79 07/14/19 14:00 Resp 33 H 07/14/19 13:00 BP 162/92 07/14/19 14:00 Pulse Ox 97 07/14/19 14:00 07/13/19 07/14/19 07/14/19 22:59 06:59 14:59 Intake Total 0 / 0 300 / 300 Output Total 250 / 1350 240 / 240 Balance 0 / -1100 -250 / -1350 60 / 60 Physical Exam Narrative: EXAM NARRATIVE: GEN: Acute distress with confusion, expressive apha leisa, pallor present, AO x3 Extremities: CVS: S1S2 N RS: CTA B/L Abd: Soft, nt/nd , bs+ PERSONAL CARE AID: power b/l 5/5, pupil b/l equal and reactive, plantars bilaterally downgoing, expressive aphasia still present Extremities: Right wrist in soft cast, hip: Clear postoperative bandage present no soakage. Urinary Catheter Management^: Campbell: Cath Placed During This Visit: yes, but has since been removed by the nurse Reason for Continuing Indwelling Catheter: Perioperative Use in Selected Surgeries Date Urinary Catheter Removed: 07/12/19 Time Urinary Catheter Discontinued: 06:09 Data : 07/14/19 03:25 07/14/19 03:25 A&P Assessment and plan (1) Stroke: Status: Acute Code(s): I63.9 - Cerebral infarction, unspecified (2) Delirium: Status: Acute Code(s): R41.0 - Disorientation, unspecified (3) Postoperative state: Status: Acute Code(s): Z98.890 - Other specified postprocedural states (4) Closed intertrochanteric fracture of right femur: Status: Acute Code(s): S72.141A - Displaced intertrochanteric fracture of right femur, initial encounter for closed fracture (5) Diabetes mellitus: Status: Acute Code(s): E11.9 - Type 2 diabetes mellitus without complications (6) Hypertension: Status: Acute Code(s): I10 - Essential (primary) hypertension (7) Distal radius fracture, right: Status: Acute Qualifiers: Encounter type: initial encounter Fracture type: closed Code(s): S52.501A - Unspecified fracture of the lower end of right radius, initial encounter for closed fracture Additional A&P Information Acute embolic stroke: As patient is recent postop, we do not have a proper last normal known patient is not a candidate for TPA. Aspirin 81 mg daily, Plavix 75 mg daily, We will decrease the dose of atorvastaIin to 40 mg after looking at the lipid panel results. Echocardiogram, carotid Dopplers still awaited. Every 1 hour neurochecks, Occupational Therapy evaluation, physical therapy evaluation for stroke. Case discussed with Dr. Felix. Recommendations appreciated. Patient is supposed to follow-up with Dr. Felix in 2 weeks after discharge. Closed intertrochanteric fracture of the right femur: Postop day 4 from ORIF. Orthopedic recommendations appreciated. Physical therapy, pain medications as per orthopedics. Will reduce the narcot ics to prevent from oversedation. We will continue to monitor hemoglobin daily. Anemia: Hemoglobin stable at 7.9. Continue with oral iron supplementation. Check hemoglobin in morning. We will keep hemoglobin around 8 given the new stroke now. Acute kidney injury: Resolved. Most likely from dehydration because of poor oral intake. DC fluid today as patient is tolerating oral diet well. Check BMP daily. We will continue to hold off on losartan for now given the acute kidney injury. Type 2 diabetes mellitus: insulin sliding scale with meals and at bedtime. HTN: Blood pressure over 160 mmhg over last 12 hrs. We will continue the same for now for permissive hypertension. Continue holding amlodipine for now. Will treat for BP of more than 200 mmhg COPD: on chronic home 02. Not currently exacerbated DuoNebs every 6 hours. Oxygen supplementation keeping oxygen saturation over 90%. Discussed in detail with the patient and sister at bedside regarding the etiologies of her symptoms yesterday and because of the stroke. Answered all the questions. Encouraged patient to continue with physical therapy/Occupational Therapy for faster recovery. Patient would need to see Dr. Felix in 2 weeks after discharge. Patient would like to follow-up with some of the neurologist at [place] afterwards. Bowel regimen today Dvt ppx: lovenox 40 mg daily after OR. Full code Carbohydrate consistent diet. Dispo: SNF placement. Papers have been faxed to [facility]. Waiting for authorization. Can transfer patient out on the floor. Attestations Medical Necessity Statement*: Acute stroke, post operative care for ORIF Time Spent in Patient Care: Greater than 35 minutes Coding Level of Care Code Acute Gi Physician for [facility] Fwzuhair Diagnoses Stroke I63.9 Delirium R41.0 Postoperative state Z98.890 Closed intertrochanteric fracture of right femur S72.141A Diabetes mellitus E11.9 Hypertension I10 Distal radius fracture, right S52.501A Encounter type: initial encounter Fracture type: closed
[2019-07-14 16:51] LABS: Glucose Point of Care 187 mg/dL (70-110)
--- NOTE | 2019-07-14 17:23 | USCV_ITS ---
Solange Acevedo Age: 83 Gender: F : 1935 Exam Date: 07/14/2019 14:06 Ordering Phys: Ilya Arnold MD Technologist: Anna Escoto Exam Location: [facility] [place] Indication: Stroke Risk Factors: Unknown Previous Vascular Surgery: None Right Brachial BP: / Left Brachial BP: / Right Left Velocity (cm/s) Spectral Plaque Velocity (cm/s) Spectral Plaque Syst/Diast Broadening Syst/Diast Broadening 60.10/ 8.90 Prox CCA 84.90 / 14.30 101.40/12.10 Mid CCA 90.40 / 16.50 84.90/ 11.00 Hetro Distal CCA 80.50 / 14.30 Hetro 141.60/14.60 Hetro Prox ICA 125.90/ 25.20 127.00/22.00 Mid ICA 152.90/ 21.60 84.40/ 14.10 Distal ICA 109.70/ 21.60 239.30 ECA 136.70 1.67 ICA/CCA 1.90 Antegrade Vertebral Antegrade 82.40/ 18.10 cm/s 79.20/ 16.20 cm/s Tri Subclavian Bi 82.80 177.7 0 CONCLUSIONS Right ICA stenosis 50-69%. Moderate atheromatous plaque right carotid bulb/ICA. Left ICA stenosis 50-69%. Moderate atheromatous plaque left carotid bulb/ICA. Normal antegrade Doppler flow noted in the left vertebral artery. Normal antegrade Doppler flow noted in the right vertebral artery. Right thyroid nodule measuring 1.6cm. This could be f/u with thyroid US Piero Meza MD (Electronically Signed) Final Date: 14 July 2019 16:12 S
--- NOTE | 2019-07-14 17:24 | USCV_ITS ---
Solange Acevedo Age: 83 Gender: F : 1935 Exam Date: 07/14/2019 14:28 Ordering Phys: Ilya Arnold MD Technologist: Anna Escoto [place]am [place] [facility] [place] Indication: Stroke BP: 168 / 54 HR: 77 Rhythm: Sinus Technical Quality: Fair MEASUREMENTS (Male / Female) Normal Values 2D ECHO LV Diastolic Diameter PLAX 4.1 cm 4.2 - 5.9 / 3.9 - 5.3 cm LV Systolic Diameter PLAX 2.2 cm LV Chamber Size 4.0 cm IVS Diastolic Thickness 2.0 cm 0.6 - 1.0 / 0.6 - 0.9 cm IVS Systolic Thickness 1.7 cm LVPW Diastolic Thickness 1.2 cm 0.6 - 1.0 / 0.6 - 0.9 cm LVPW Systolic Thickness 1.5 cm RV Chamber Size 3.2 cm LVOT Diameter 2.1 cm LV Ejection Fraction 2D Teich 78.5 % LV Ejection Fraction MOD 2C 61.3 % LV Ejection Fraction 2C AL 61.5 % LA Diameter 4.8 cm LA Width 3.9 cm LA Height 5.9 cm RA Width 3.1 cm RA Height 5.2 cm Aorta at Sinotubular Diameter 2.3 cm M-MODE LV Diastolic Diameter MM 5.3 cm 4.2 - 5.9 / 3.9 - 5.3 cm LV Systolic Diameter MM 2.8 cm LV Ejection Fraction MM Teich 77.6 % IVS Diastolic Thickness MM 1.1 cm 0.6 - 1.0 / 0.6 - 0.9 cm IVS Systolic Thickness MM 1.6 cm LVPW Diastolic Thickness MM 1.0 cm 0.6 - 1.0 / 0.6 - 0.9 cm LVPW Systolic Thickness MM 1.5 cm RV Diastolic Diameter MM 1.9 cm Aortic Annulus Diameter 3.5 cm LA Ao Ratio MM 1.4 MV E Point Septal Separation 0.2 cm DOPPLER AV Peak Velocity 134.0 cm/s LVOT Peak Velocity 101.0 cm/s AV Area Cont Eq vti 2.5 cm squared AV Area Cont Eq pk 2.5 cm squared MV Area PHT 2.7 cm squared Mitral E to A Ratio 0.6 MV E' Velocity 7.0 cm/s Mitral E to MV E' Ratio 12.3 Mitral E to LV E' Lateral Ratio 10.0 Mitral E to LV E' Septal Ratio 16.5 TR Peak Velocity 443.0 cm/s TR Peak Gradient 78.3 mmHg TV Peak E Velocity 56.0 cm/s Right Atrial Pressure 15.0 mmHg Pulmonary Artery Systolic Pressu 93.5 mmHg PV Peak Velocity 80.0 cm/s RV Acceleration Time 0.1 s RV Ejection Time 0.3 s RV AcT/ET 0.3 FINDINGS Left Ventricle Normal left ventricular size, systolic function and wall thickness, with no regional wall motion abnormalities. Grade I diastolic dysfunction noted Left ventricular ejection fraction is estimated at 55 %. Right Ventricle Mildly increased right ventricular size. Mildly decreased right ventricular systolic function. Right Atrium Normal right atrial size. Left Atrium Normal left atrial size. Mitral Valve Mildly thickened mitral valve. Mild mitral valve stenosis. Aortic Valve . No aortic valve stenosis. Mild aortic valve calcification. No aortic valve stenosis. Tricuspid Valve Tricuspid valve not well visualized. . No tricuspid valve stenosis. [id number] tricuspid valve regurgitation. Severe pulmonary HTN with estimated RVSP 93 mmHg Pulmonic Valve Pulmonic valve not well visualized. Pericardium No thickening/calcification of the pericardium. No pericardial or pleural effusion. Aorta Normal size aortic root and proximal ascending aorta. CONCLUSIONS Normal left ventricular size and function with an estimated ejection fraction of 55 %. Severe pulmonary HTN noted with estimated RVSP 93 mmHg Mild RV dysfunction noted No pericardial effusion noted Zhao Caldwell MD (Electronically Signed) Final Date: 14 July 2019 16:07 S
--- NOTE | 2019-07-14 19:30 | PC.NURSE ---
Pt transferred to [facility] room 271-1 by bed and oxygen at 4L NC. Pt belongings sent with patient, handoff report given to NAMITA Fall.
[2019-07-14] MEDS: sodium chloride 0.9% 1,000 ML 50 ML IV (21:05)
[2019-07-14] MEDS: atorvastatin 40 mg Tablet 80 MG PO (21:06)
[2019-07-14 21:59] LABS: Glucose Point of Care 171 mg/dL (70-110)
[2019-07-15] VITALS (14 sets, daily range): BP systolic 139–162; BP diastolic 60–92; PULSE 72–96; RESP 16–20; TEMP 36.5–37.1; O2SAT 90–98
[2019-07-15] MEDS: ipratropium-albuterol 3 mL Neb INHALATION ×4 (02:08→22:20)
[2019-07-15 06:42] LABS: Glucose Point of Care 152 mg/dL (70-110)
[2019-07-15] MEDS: pantoprazole DR 40 mg Tablet PO (09:43)
[2019-07-15] MEDS: losartan 50 mg Tablet PO (09:43)
[2019-07-15] MEDS: aspirin 81 mg EC Tablet PO (09:43)
[2019-07-15] MEDS: clopidogrel 75 mg Tablet PO (09:43)
[2019-07-15 11:09] LABS: Glucose Point of Care 220 mg/dL (70-110)
[2019-07-15] MEDS: TRAMadol 50 mg Tablet PO (12:14)
--- NOTE | 2019-07-15 14:45 | PC.RESP ---
Pt would like breathing treatments at assisted.
--- NOTE | 2019-07-15 15:02 | P.PN_ITS ---
Subjective Subjective: Interval history: Right hip and Right wrist pain controlled with meds Vitals/I&O/Wt Last Vital Signs Temp 97.9 F 07/15/19 11:26 Pulse 72 07/15/19 14:39 Resp 20 H 07/15/19 14:39 BP 148/68 07/15/19 11:26 Pulse Ox 94 07/15/19 14:39 07/15/19 07/15/19 07/15/19 06:59 14:59 22:59 Intake Total 60 / 1680 600 / 600 Output Total 350 / 1070 Balance -290 / 610 600 / 600 Physical Exam Narrative: EXAM NARRATIVE: Right hip dressing clean and dry. Urinary Catheter Management^: Campbell: Cath Placed During This Visit: yes, but has since been removed by the nurse Reason for Continuing Indwelling Catheter: Perioperative Use in Selected Surgeries Date Urinary Catheter Removed: 07/12/19 Time Urinary Catheter Discontinued: 06:09 Data : 07/14/19 03:25 07/14/19 03:25 A&P Assessment and plan (1) Postoperative state: Status: Acute Code(s): Z98.890 - Other specified postprocedural states (2) Distal radius fracture, right: Status: Acute Qualifiers: Encounter type: initial encounter Fracture type: closed Code(s): S52.501A - Unspecified fracture of the lower end of right radius, initial encounter for closed fracture Additional A&P Information Patient is WBAT RLE but NWB on R wrist. Ok to mobilize with platform walker. FU in my clinic in 1 month. Attestations Medical Necessity Statement*: OKfor discharge Coding Level of Care Code Acute Training And Development Director for [facility] Diagnoses Postoperative state Z98.890 Distal radius fracture, right S52.501A Encounter type: initial encounter Fracture type: closed
--- NOTE | 2019-07-15 15:02 | PM.PN ---
Subjective Subjective: Interval history: No acute events overnight. Patient has not had any further neurological status changes. On examination she is lying comfortably in bed, not confused is able to speak in sentences today. No nausea, vomiting, palpitations, headache overnight. On telemetry patient has remained. Labs and vital signs noted. All the questions answered from her sister. 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 Extremities: Right wrist in soft cast, hip: Clear postoperative bandage present no soakage. Urinary Catheter Management^: Campbell: Cath Placed During This Visit: yes, but has since been removed by the nurse Reason for Continuing Indwelling Catheter: Perioperative Use in Selected Surgeries Date Urinary Catheter Removed: 07/12/19 Time Urinary Catheter Discontinued: 06:09 Data : 07/14/19 03:25 07/14/19 03:25 A&P Assessment and plan (1) Stroke: Status: Acute Code(s): I63.9 - Cerebral infarction, unspecified (2) Delirium: Status: Acute Code(s): R41.0 - Disorientation, unspecified (3) Postoperative state: Status: Acute Code(s): Z98.890 - Other specified postprocedural states (4) Closed intertrochanteric fracture of right femur: Status: Acute Code(s): S72.141A - Displaced intertrochanteric fracture of right femur, initial encounter for closed fracture (5) Diabetes mellitus: Status: Acute Code(s): E11.9 - Type 2 diabetes mellitus without complications (6) Hypertension: Status: Acute Code(s): I10 - Essential (primary) hypertension (7) Distal radius fracture, right: Status: Acute Qualifiers: Encounter type: initial encounter Fracture type: closed Code(s): S52.501A - Unspecified fracture of the lower end of right radius, initial encounter for closed fracture Additional A&P Information Acute embolic stroke: As patient is recent postop, we do not have a proper last normal known patient is not a candidate for TPA. Aspirin 81 mg daily, Plavix 75 mg daily, atorva 40 mg qd. Echocardiogram, carotid Dopplers results appreciated. Every 1 hour neurochecks, Occupational Therapy evaluation, physical therapy evaluation for stroke. Case discussed with Dr. Felix. Recommendations appreciated. Patient is supposed to follow-up with Dr. Felix in 2 weeks after discharge. Closed intertrochanteric fracture of the right femur: Postop day 5 from ORIF. Orthopedic recommendations appreciated. Physical therapy, pain medications as per orthopedics. Will reduce the narcotics to prevent from oversedation. We will continue to monitor hemoglobin daily. Anemia: Hemoglobin stable at 7.9. Continue with oral iron supplementation. Check hemoglobin in morning. We will keep hemoglobin around 8 given the new stroke now. Acute kidney injury: Resolved. Most likely from dehydration because of poor oral intake. DC fluid today as patient is tolerating oral diet well. Check BMP daily. We will continue to hold off on losartan for now given the acute kidney injury. Type 2 diabetes mellitus: insulin sliding scale with meals and at bedtime. HTN: Out of the window for permissive hypertension now. We will start patient on home medication losartan but at a lower dose at 50 mg daily. COPD: on chronic home 02. Not currently exacerbated DuoNebs every 6 hours. Oxygen supplementation keeping oxygen saturation over 90%. Discussed in detail with the patient and sister at bedside regarding the etiologies of her symptoms yesterday and because of the stroke. Answered all the questions. Encouraged patient to continue with physical therapy/Occupational Therapy for faster recovery. Patient would need to see Dr. Felix in 2 weeks after discharge. Patient would like to follow-up with some of the neurologist at [place] afterwards. Bowel regimen today Dvt ppx: lovenox 40 mg daily after OR. Full code Carbohydrate consistent diet. Dispo: SNF placement. Papers have been faxed to [facility]. Waiting for authorization. Attestations Medical Necessity Statement*: Acute stroke, postop management from ORIF Time Spent in Patient Care: Greater than 35 minutes Coding Level of Care Code Acute Ambulance Attendant for Jose King Diagnoses Stroke I63.9 Delirium R41.0 Postoperative state Z98.890 Closed intertrochanteric fracture of right femur S72.141A Diabetes mellitus E11.9 Hypertension I10 Distal radius fracture, right S52.501A Encounter type: initial encounter Fracture type: closed
[2019-07-15] MEDS: enoxaparin 40 mg/0.4 mL Syringe SUBCUT (17:25)
[2019-07-15] MEDS: ondansetron 2 mg/ML SDV 2 mL 4 MG IVP (17:25)
[2019-07-15 17:26] LABS: Glucose Point of Care 204 mg/dL (70-110)
[2019-07-15] MEDS: sodium chloride 0.9% 1,000 ML 50 ML IV (17:27)
[2019-07-15 21:45] LABS: Glucose Point of Care 200 mg/dL (70-110)
[2019-07-15] MEDS: atorvastatin 40 mg Tablet 80 MG PO (21:58)
[2019-07-16] VITALS (15 sets, daily range): BP systolic 131–162; BP diastolic 56–72; PULSE 74–90; RESP 16–22; TEMP 36.4–37.6; O2SAT 91–97
[2019-07-16] MEDS: ipratropium-albuterol 3 mL Neb INHALATION ×4 (02:50→20:08)
[2019-07-16 06:26] LABS: Basophils % 0.1 %; Eosinophils # 0.1 10^3/uL (0.0-0.8); Eosinophils % 1.8 %; Hemoglobin 7.3 g/dL (11.5-15.3); Lymphocytes # 0.8 10^3/uL (0.8-4.8); Lymphocytes % 11.6 %; Mean Corpuscular HGB Conc 31.7 g/dL (30.0-36.0); Mean Corpuscular Hemoglobin 31.1 pg (28.0-34.0); Mean Corpuscular Volume 97.9 fL (81-99); Mean Platelet Volume 10.8 fL (7.4-10.4); Monocytes # 0.7 10^3/uL (0.2-0.9); Monocytes % 10.5 %; Nucleated Red Blood Cells % 0 %; Platelet Count 268 10^3/cmm (130-400); Red Blood Count 2.35 10^6/uL (4.1-5.3); Red Cell Distribution Width 13.6 % (12.1-15.1); White Blood Count 6.7 10^3/uL (4.0-10.0)
[2019-07-16 06:38] LABS: Glucose Point of Care 154 mg/dL (70-110)
[2019-07-16 06:45] LABS: Alanine Aminotransferase 11 U/L (0-33); Albumin Level 3.1 g/dL (3.5-5.2); Alkaline Phosphatase 56 IU/L (35-105); Aspartate Amino Transferase 21 U/L (0-32); Blood Urea Nitrogen 15 mg/dL (8-23); Calcium 8.3 mg/dL (8.5-10.5); Carbon Dioxide 31 mmol/L (22-29); Chloride 101 mmol/L (98-107); Globulin 2.5 g/dL (1.3-4.6); Glucose 160 mg/dL (65-115); Osmolality Calculated 286 mOsm/kg (285-295); Sodium 138 mmol/L (136-145); Total Bilirubin 0.5 mg/dL (0.15-1.2); Total Protein 5.6 g/dL (6.6-8.7)
--- NOTE | 2019-07-16 07:25 | PC.NURSE ---
SKIN NOTE NOTED RIGHT HAND TO BE IN SPLINT C/D/I WITH NO REDNESS - MODERATE AMOUNT OF BRUISING NOTED TO RIGHT FA - OPTIFOAM TO RIGHT ELBOW NOTED TO BE C/D/I - WITH NO DRAINAGE NOTED - RIGHT HIP WITH SMALL AMOUNT OF DRAINAGE
[2019-07-16] MEDS: pantoprazole DR 40 mg Tablet PO (08:08)
[2019-07-16] MEDS: losartan 50 mg Tablet PO (08:08)
[2019-07-16] MEDS: clopidogrel 75 mg Tablet PO (08:09)
[2019-07-16] MEDS: aspirin 81 mg EC Tablet PO (08:09)
[2019-07-16 12:24] LABS: Glucose Point of Care 193 mg/dL (70-110)
[2019-07-16] MEDS: sodium chloride 0.9% 1,000 ML 50 ML IV (12:37)
--- NOTE | 2019-07-16 13:38 | PC.SOCIAL ---
IMM Updated Updated pt & family on PG 2 IMM. NO questions voiced. Provided pt a copy & gave to pt's daughter. Signed, dated, & timed original in chart.
--- NOTE | 2019-07-16 15:33 | P.PN_ITS ---
Subjective Subjective: Interval history: She sitting up in chair. She is comfortable. Interactive. Reports she cannot really make it far with physical therapy, does get somewhat sore, but otherwise doing all right. Denies any other pain. Denies shortness of breath. Vitals/I&O/Wt Last Vital Signs Temp 98.7 F 07/16/19 15:11 Pulse 90 07/16/19 15:25 Resp 20 H 07/16/19 15:14 BP 131/56 07/16/19 15:11 Pulse Ox 97 07/16/19 15:14 07/16/19 07/16/19 07/16/19 06:59 14:59 22:59 Intake Total 120 / 1720 1098.333 / 1098.333 Output Total 725 / 735 600 / 600 Balance -605 / 985 1098.333 / 1098.333 -600 / 498.333 Physical Exam Const: COMMON NORMALS: no apparent distress and oriented x3 HENMT: COMMON NORMALS: oropharynx normal Neck/C-Spine: COMMON NORMALS: no JVD Resp: COMMON NORMALS: normal respiratory effort and clear to auscultation bilaterally AUSCULTATION: clear to auscultation bilaterally Cardio: COMMON NORMALS: no JVD, regular rhythm, S1 normal heart sound, S2 normal heart sound and no murmurs RHYTHM: regular rhythm HEART SOUNDS: S1 normal and S2 normal GI: COMMON NORMALS: normal to inspection, nondistended, normoactive bowel sounds, soft to palpation and non-tender PALPATION: Yes soft Extremity: COMMON NORMALS: no joint enlargement and no pedal edema NARRATIV E EXTREMITY EXAM: Right wrist in splint. Some bruising. Able to move digits. 2+ swelling right lower extremity up to thigh. No bleeding at the wound. Neuro: COMMON NORMALS: oriented x3 and moves all extremities OTHER: Mild a aphasia Skin: COMMON NORMALS: no rashes or lesions noted GENERAL SKIN EXAM: no rashes or lesions noted Urinary Catheter Management^: Campbell: Cath Placed During This Visit: yes, but has since been removed by the nurse Reason for Continuing Indwelling Catheter: Perioperative Use in Selected Surgeries Date Urinary Catheter Removed: 07/12/19 Time Urinary Catheter Discontinued: 06:09 Data : 07/16/19 05:43 07/16/19 05:43 A&P Assessment and plan (1) Stroke: Large area of restricted diffusion involving the left parieto-occipital lobe extending into the superotemporal lobe consistent with acute ischemia. Mild localized edema. No significant midline shift. Continue aspirin, Plavix. Telemetry monitoring. 50 to 69% bilateral carotid artery disease. Statin. Blood pressure somewhat on the high side, however, for now avoid too tight control given size of CVA, cerebellar infarction. Follow-up with neurology in office. Status: Acute Code(s): I63.9 - Cerebral infarction, unspecified (2) Closed intertrochanteric fracture of right femur: Status post ORIF. Continue PT. Arrangements being made for rehabi litation. Should be able to transfer tomorrow. Hemoglobin did trend down to 7.3 today. Will monitor. If trends down more, transfuse 1 unit. Status: Acute Code(s): S72.141A - Displaced intertrochanteric fracture of right femur, initial encounter for closed fracture (3) Postoperative state: Status: Acute Code(s): Z98.890 - Other specified postprocedural states (4) Distal radius fracture, right: Status: Acute Qualifiers: Encounter type: initial encounter Fracture type: closed Code(s): S52.501A - Unspecified fracture of the lower end of right radius, initial encounter for closed fracture (5) Diabetes mellitus: Status: Acute Code(s): E11.9 - Type 2 diabetes mellitus without complications (6) Hypertension: Status: Acute Code(s): I10 - Essential (primary) hypertension (7) Delirium: Status: Acute Code(s): R41.0 - Disorientation, unspecified (8) Lung nodule: Discussed with patient, discussed with [id number]. Nodule appears to be somewhere between 9-11 mm in size per discussion with radiology (9mm). Would be a small target. Per discussion with family and patient they would prefer to rather follow-up with repeat imaging in 3 to 6 months then try to pursue a biopsy sooner. 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 She has no right upper quadrant discomfort. Will assess right upper quadrant ultrasound. 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 Check hemoglobin in morning. If trending down, transfuse 1 unit pRBC. Acute kidney injury: Resolved. Type 2 diabetes mellitus: insulin sliding scale with meals and at bedtime. HTN: Avoid too tight control for now. COPD: on chronic home 02. Not currently exacerbated. DuoNebs every 6 hours. Continue O2 at AL. Attestations Medical Necessity Statement*: Continue admission for assessment following CVA, fall, right hip and wrist fracture. 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
[2019-07-16] MEDS: enoxaparin 40 mg/0.4 mL Syringe SUBCUT (16:27)
--- NOTE | 2019-07-16 16:37 | PC.NURSE ---
MAX ASSIST PT RETURNED TO BED FROM CHAIR - MAX ASSIST OF STAFF - GILLES POORLY - SCD'S PLACED ON LEFT LEG WITH FOOT PUMP ON RIGHT - IS IN USE CURRENTLY PER PT
[2019-07-16 17:05] LABS: Glucose Point of Care 151 mg/dL (70-110)
[2019-07-16 21:14] LABS: Glucose Point of Care 174 mg/dL (70-110)
[2019-07-16] MEDS: atorvastatin 40 mg Tablet 80 MG PO (21:38)
[2019-07-17] VITALS (9 sets, daily range): BP systolic 148–180; BP diastolic 64–78; PULSE 74–88; RESP 16–20; TEMP 36.7–37.2; O2SAT 90–96
[2019-07-17] MEDS: ipratropium-albuterol 3 mL Neb INHALATION ×2 (03:13→09:46)
--- NOTE | 2019-07-17 06:00 | US_ITS ---
WS: [id number] ABDOMINAL ULTRASOUND LIMITED REASON FOR VISIT: hepatobiliary - GB dilation on CT TECHNIQUE: Grayscale and Doppler ultrasound examination of the abdomen. FINDINGS: Pancreas: Poorly seen due to overriding gas. Abdominal aorta and IVC: Appears to be normal. Liver: Liver measures 10.7 cm in length. The portal blood flow appears to be somewhat reversed with a bnormal scanned through the portal vein. Gallbladder: Gallbladder wall thickness measures 0.3 mm. The gallbladder was enlarged measures 10.71 cm. x 4.45 cm. No stones are identified. The common bile duct is found to be dilated 11.7 mm. There were no definite stones or masses seen. Behind the gallbladder there appears to be a vascular flow pattern we feel most likely from the phil l circulation. Right kidney: Right kidney measures 10.74 cmProminent cyst is seen in the right kidney smallest jyothi ures 1.18 x 1.12 cm the largest measured 3.26 x 3.35 cm. US/US abdomen limited [id number] IMPRESSION: Dilated gallbladder with thickened wall and no stones seen. Large cyst in the right kidney. The common bile duct is grossly dilated. The pancreas was poorly seen due to overriding gas. With the above findings we recommend an MRI and MRCP be performed to rule out a lesion in the head of the pancreas. The portal circulation is abnormal also.
[2019-07-17 06:03] LABS: Basophils % 0.1 %; Eosinophils # 0.2 10^3/uL (0.0-0.8); Eosinophils % 3.1 %; Hemoglobin 7.6 g/dL (11.5-15.3); Lymphocytes # 0.9 10^3/uL (0.8-4.8); Lymphocytes % 11.2 %; Mean Corpuscular HGB Conc 31.7 g/dL (30.0-36.0); Mean Corpuscular Hemoglobin 31.4 pg (28.0-34.0); Mean Corpuscular Volume 99.2 fL (81-99); Mean Platelet Volume 10.6 fL (7.4-10.4); Monocytes # 0.8 10^3/uL (0.2-0.9); Monocytes % 10.3 %; Neutrophils # 5.7 10^3/uL (1.8-7.7); Neutrophils % 72.7 %; Nucleated Red Blood Cells % 0 %; Platelet Count 287 10^3/cmm (130-400); Red Blood Count 2.42 10^6/uL (4.1-5.3); Red Cell Distribution Width 13.8 % (12.1-15.1); White Blood Count 7.8 10^3/uL (4.0-10.0)
[2019-07-17 06:31] LABS: Anion Gap 13.1 (5-19); Blood Urea Nitrogen 15 mg/dL (8-23); Calcium 8.6 mg/dL (8.5-10.5); Carbon Dioxide 26 mmol/L (22-29); Chloride 103 mmol/L (98-107); Glucose 146 mg/dL (65-115); Osmolality Calculated 285 mOsm/kg (285-295); Potassium 4.1 mmol/L (3.5-5.1); Sodium 138 mmol/L (136-145)
[2019-07-17 06:47] LABS: Glucose Point of Care 156 mg/dL (70-110)
[2019-07-17] MEDS: losartan 50 mg Tablet PO (08:31)
[2019-07-17] MEDS: aspirin 81 mg EC Tablet PO (08:32)
[2019-07-17] MEDS: pantoprazole DR 40 mg Tablet PO (08:32)
[2019-07-17] MEDS: clopidogrel 75 mg Tablet PO (08:32)
[2019-07-17] MEDS: TRAMadol 50 mg Tablet PO (08:32)
[2019-07-17 11:04] LABS: Glucose Point of Care 169 mg/dL (70-110)
--- NOTE | 2019-07-17 11:12 | P.DS_ITS ---
Discharge Providers Date of Admission: 07/09/19 14:06 Date of Discharge: July 17, 2019 Attending Provider at Admission: Kelin Benito MD Attending Provider at Discharge: Branden Welch Primary Care Provider: Raj Vu Diagnoses at Discharge Discharge Diagnosis (1) Stroke: Status: Acute (2) Closed intertrochanteric fracture of right femur: Status: Acute (3) Postoperative state: Status: Acute (4) Distal radius fracture, right: Status: Acute Qualifiers: Encounter type: initial encounter Fracture type: closed (5) Diabetes mellitus: Status: Acute (6) Hypertension: Status: Acute (7) Delirium: Status: Acute (8) Lung nodule: Status: Acute (9) Gallbladder anomaly: Status: Acute (10) Thyroid nodule: Status: Acute (11) COPD (chronic obstructive pulmonary disease): Status: Acute (12) Anemia: Status: Acute Reason for Visit Reason for Visit: Reason For Visit: BILAT HIP AND RIGHT WRIST PAIN S/P FALL Hospital Course Hospital Course: Pleasant 83-year-old lady with history of diabetes, HTN, COPD on chronic oxygen at home was admitted after a mechanical fall at home with finding of right hip and right wrist fracture for which she was seen by orthopedics and underwent ORIF of the right hip on 07/10. Right wrist was placed in splint. Postoperatively hospitalization complicated by CVA, hypoxia and postoperative anemia, although so far has not required transfusion. CVA assessment done on 07/12 after noted confused, with expressive a aphasia. Large area left parieto-occipital acute ischemia noted on MRI brain. Additional acute infarct right cerebellum 2.1 cm. Punctate infarct right parietal lobe. Per discussion with neurology was not candidate for TPA, was started on dual antiplatelet therapy with aspirin, Plavix. Statin. Carotid Doppler with bilateral atherosclerosis, 50-69%. Incidentally noted to have 1.6 cm right thyroid nodule which will need additional follow-up by ultrasonography. Echocardiogram with suspected severe pulmonary hypertension. Telemetry without atrial fibrillation. She will with neurology in office. Consideration of additional therapy possibly anticoagulation given concern for possible etiology, and timing of initiation given the size of the CVA, as well as consideration of extended cardiac monitoring. Continue optimization of blood pressure control, although avoid too tight control with recent acute CVA of large size, and involving cerebellum. While in the hospital she has done very well. Today with only mild-moderate aphasia. Due to postoperative hypoxia was assessed by CTA which did not identify PE, but incidentally was found to have 11 mm left upper lobe nodule of suspicious appearance which will need additional follow-up. Per discussion with radiology nodule size is borderline summer between 9-11 mm, and per discussion with patient and family preference is for follow-up with CT in 3- 6 months rather than arrangements for biopsy currently given her overall medical condition. Also incidentally noted on CTA gallbladder distention, again seen on ultrasonography of right upper quadrant, with mild thickening of the gallbladder wall, although with completely normal liver parameters, and no symptoms to suggest gallbladder disease. When she is recovering from her acute illness this would benefit from additional follow-up with MRI/MRCP. Please help her with having this follow up performed. Although so far has stabilized around 7.5. Please follow-up the results. Hemoglobin will also be rechecked in 3 days acute kidney injury seen on presentation had resolved. Weightbearing as tolerated per orthopedics, nonweightbearing on the right wrist. Mobilize with platform walker. Follow-up in clinic. Physical Exam Const: COMMON NORMALS: no apparent distress and oriented x3 HENMT: COMMON NORMALS: oropharynx normal Neck/C-Spine: COMMON NORMALS: no JVD Resp: COMMON NORMALS: normal respiratory effort and clear to auscultation bilaterally AUSCULTATION: clear to auscultation bilaterally Cardio: COMMON NORMALS: no JVD, regular rhythm, S1 normal heart sound, S2 normal heart sound and no murmurs RHYTHM: regular rhythm HEART SOUNDS: S1 normal and S2 normal GI: COMMON NORMALS: normal to inspection, nondistended, normoactive bowel s ounds, soft to palpation and non-tender PALPATION: Yes soft Extremity: COMMON NORMALS: no joint enlargement and no pedal edema NARRATIVE EXTREMITY EXAM: Right wrist in splint. Some bruising. Able to move digits. 2+ swelling right lower extremity up to thigh. No bleeding at the wound. Neuro: COMMON NORMALS: oriented x3 and moves all extremities OTHER: Mild aphasia Skin: COMMON NORMALS: no rashes or lesions noted GENERAL SKIN EXAM: no rashes or lesions noted Urinary Catheter Management^: Campbell: Cath Placed During This Visit: yes, but has since been removed by the nurse Reason for Continuing Indwelling Catheter: Perioperative Use in Selected Surgeries Date Urinary Catheter Removed: 07/12/19 Time Urinary Catheter Discontinued: 06:09 Discharge Data Data Completed and Pending: Completed Studies During Hospitalization Category Date Time Status CT angio chest PE protcl [id number] Stat Cat Scan 07/12/19 21:[address] head wo con* 7 0450 Stat Cat Scan 07/13/19 09:[address] hip RT wo con* [id number] Stat Cat Scan 07/09/19 12:14 Completed XR chest 1V phil ble [id number] Stat Exams 07/09/19 10:46 Completed XR elbow RT min 3 V* [id number] Stat Exams 07/09/19 10:46 Completed XR femur RT min 2 V* [id number] Routine Exams 07/11/19 Completed XR hip LT 2-3V wo /w pel* [id number] Stat Exams 07/09/19 10:46 Completed XR hip RT 2-3V wo /w pel* [id number] Stat Exams 07/09/19 10:46 Completed XR knee RT 3V* 73 562 Stat Exams 07/09/19 10:46 Completed XR wrist RT min 3 V* [id number] Stat Exams 07/09/19 11:09 Completed MR head wo con* 7 0551 Urgent MRI 07/13/19 15:15 Completed CV carotid duplex BI* [id number] Routine Ultrasound 07/14/19 17:23 Completed CV echo complete* [id number] Routine Ultrasound 07/14/19 17:24 Completed US abdomen limite d [id number] Routine Ultrasound 07/17/19 06:00 Completed Pending at discharge Category Date Time Status Basic Metabolic P ricardo AM LABS Lab 07/18/19 04:00 Ordered Basic Metabolic P ricardo AM LABS Lab 07/19/19 04:00 Ordered Complete Blood Co unt w/Auto AM LABS Lab 07/18/19 04:00 Ordered Complete Blood Co unt w/Auto AM LABS Lab 07/19/19 04:00 Ordered Labs from last 24 hours 07/17/19 07/17/19 07/17/19 10:47 06:39 05:14 WBC RBC Hgb Hct MCV MCH MCHC RDW Plt Count MPV Neut % (Auto) Lymph % (Auto) [place] % (Auto) Eos % (Auto) Baso % (Auto) Neut # (Auto) Lymph # (Auto) [place] # (Auto) Eos # (Auto) Baso # (Auto) Nucleated RBC % (a uto) Nucleated RBCs # Sodium 138 Potassium 4.1 Chloride 103 Carbon Dioxide 26 Anion Gap 13.1 BUN 15 Creatinine 0.8 Glucose 146 H POC Glucose 169 156 Calculated Osmolal ity 285 Calcium 8.6 07/17/19 07/16/19 07/16/19 05:14 21:02 16:53 WBC 7.8 RBC 2.42 L Hgb 7.6 L Hct 24.0 L MCV 99.2 H MCH 31.4 MCHC 31.7 RDW 13.8 Plt Count 287 MPV 10.6 H Neut % (Auto) 72.7 Lymph % (Auto) 11.2 [place] % (Auto) 10.3 Eos % (Auto) 3.1 Baso % (Auto) 0.1 Neut # (Auto) 5.7 Lymph # (Auto) 0.9 [place] # (Auto) 0.8 Eos # (Auto) 0.2 Baso # (Auto) 0.0 Nucleated RBC % (a uto) 0 Nucleated RBCs # 0.0 Sodium Potassium Chloride Carbon Dioxide Anion Gap BUN Creatinine Glucose POC Glucose 174 151 Calculated Osmolal ity Calcium 07/16/19 10:52 WBC RBC Hgb Hct MCV MCH MCHC RDW Plt Count MPV Neut % (Auto) Lymph % (Auto) [place] % (Auto) Eos % (Auto) Baso % (Auto) Neut # (Auto) Lymph # (Auto) [place] # (Auto) Eos # (Auto) Baso # (Auto) Nucleated RBC % (a uto) Nucleated RBCs # Sodium Potassium Chloride Carbon Dioxide Anion Gap BUN Creatinine Glucose POC Glucose 193 Calculated Osmolal ity Calcium Vitals: Last Vital Signs Temp 98.9 F 07/17/19 08:00 Pulse 74 07/17/19 09:47 Resp 16 07/17/19 09:47 BP 148/78 07/17/19 08:31 Pulse Ox 96 07/17/19 09:47 Discharge Plan Discharge Patient Disposition: Xfer SNF Condition: Stable Prescriptions: New atorvastatin 40 mg Tablet 80 mg PO BEDTIME Qty: 60 RF: 0 clopidogrel 75 mg Tablet 75 mg PO DAILY Qty: 30 RF: 0 aspirin 81 mg Tablet,Delayed Release (Dr/Ec) 81 mg PO DAILY Qty: 30 RF: 0 Lovenox 40 mg/0.4 mL Syringe 40 mg SUBCUT Q24H 4 Days Qty: 1.6 RF: 0 pantoprazole 40 mg Tablet,Delayed Release (Dr/Ec) 40 mg PO DAILY Qty: 30 RF: 0 tramadol 50 mg Tablet 50 mg PO Q6H PRN (Reason: Moderate Pain) Qty: 12 RF: 0 Continued metformin 1,000 mg tablet 1,000 mg PO BID Qty: 60 RF: 0 Vitamin C 1,000 mg Tablet 1,000 mg PO PRN RF: 0 pioglitazone 30 mg tablet 30 mg PO DAILY RF: 0 Combivent Respimat 20-100 mcg/actuation mist 1 puff INHALATION QID PRN (Reason: Shortness Of Breath) RF: 0 Calcium 500 1 tab PO BID RF: 0 Changed losartan 100 mg tablet 50 mg PO DAILY Qty: 0 RF: 0 Discharge Orders: Discharge Order (Routine); Ordered 07/17/19 Ordered By: Branden Welch Other Ambulatory Orders: Complete Blood Count w/Auto (Routine) Timeframe: 3 Days Location: Determined by Patient Ordered By: Branden Welch Referrals: [facility] [Outside] (Call Thursday as needed to make hospital follow up appointments for [place]. ) Buffy Felix MD [Physician] - 2 weeks (Call Thursday to Dr. Castro office to make a follow up appointment in 2 weeks for CVA) Julito Griggs MD [Physician] - 08/09/19 9:45 am (You have an appointment for August 09, 2019 at 9:[address]am with Dr. Griggs. Call Thursday to verify appointment.) Kranthi Capone Jr, MD [Staff Physician] - 4-7 days (Call Thursday and make a hospital follow up appointment with Dr. Capone in 4-7 days.) Discharge Diet: Cardiac, Diabetic and Low Cholesterol Discharge Activity: As per PT/OT instructions Patient Instructions: Aspirin (By mouth), Enoxaparin (Injection), Atorvastatin (By mouth), Clopidogrel (By mouth), Pantoprazole (By mouth), Open Reduction and Internal Fixation of a Hip Fracture (DC) Activity Restrictions/Additional Instructions: Remove yumiko right hip on 07/25/2019 Change dressing as needed for drainage. Okay to shower or bathe once incision free of drainage. Weightbearing as tolerated right lower extremity, nonweightbearing right hand. May ambulate with platform walker on right Please discuss with your primary care provider to have him schedule you for a repeat CT scan of your chest to follow-up on left upper lobe nodule. Discuss with your primary care provider regarding anemia and have him follow-up your blood count after discharge. Please discuss with your primary care doctor to have your referred for MRI of your gallbladder and pancreas (MRCP) due to gallbladder distention without stones. If you experience pain in the right upper quadrant, fever, or other abnormal symptoms, seek medical attention without delay. Please discuss with your primary care doctor to arrange follow up ultrasound on thyroid nodule (1.6cm). Avoid too tight control of blood pressure until cleared by neurology. Continue oxygen by nasal cannula for COPD at 3 L/min, target saturation 88-92%. 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
== END 2019-07-17 15:54 | disposition skilled nursing facility (03) | DRG 480 ==
LOC: ER 11:29 → MEDSURG 14:20 → ICU 07-13 19:50 → MEDSURG 07-14 19:32
PROVIDERS: Orthopaedic Surgery; Student in an Organized Health Care Education/Training Program; Admitting Provider Student in an Organized Health Care Education/Training Program; Emergency Provider Family Medicine; Family Provider Nurse Practitioner Family; PCP Nurse Practitioner Family; Visit Provider Internal Medicine
PROC: 0QS604Z Reposition Right Upper Femur with Internal Fixation Device, Open Approach (ICD-10-PCS; CPT 27245; principal; 2019-07-11 11:30)
DX: S72.141A Displaced intertrochanteric fracture of right femur, initial encounter for closed fracture (principal); I63.9 Cerebral infarction, unspecified; S52.501A Unspecified fracture of the lower end of right radius, initial encounter for closed fracture; D62 Acute posthemorrhagic anemia; N17.9 Acute kidney failure, unspecified; Q44.1 Other congenital malformations of gallbladder; R47.01 Aphasia; F17.210 Nicotine dependence, cigarettes, uncomplicated; E11.9 Type 2 diabetes mellitus without complications; I10 Essential (primary) hypertension; E04.1 Nontoxic single thyroid nodule; J44.9 Chronic obstructive pulmonary disease, unspecified; W01.0XXA Fall on same level from slipping, tripping and stumbling without subsequent striking against object, initial encounter; E86.0 Dehydration; R09.02 Hypoxemia; Y92.009 Unspecified place in unspecified non-institutional (private) residence as the place of occurrence of the external cause; Z79.84 Long term (current) use of oral hypoglycemic drugs; Z79.52 Long term (current) use of systemic steroids; Z98.890 Other specified postprocedural states; Z99.81 Dependence on supplemental oxygen
CPT/HCPCS: 12345; 36415; 36416; 36600; 51702; 51798; 70450; 70551; 71045; 71275; 73080; 73110; 73502; 73552; 73562; 73700; 76000; 76705; 80048; 80051; 80053; 80061; 81001; 82803; 82810; 82962; 83986; 85025; 87086; 93306; 93880; 94640; 94664; 94762; 96372; 96374; 96375; 97110; 97161; 97163; 97167; 97168; 97530; 97535; 99283; C1776; C9113; J0330; J0690; J0696; J1650; J1815; J1885; J1940; J2001; J2270; J2405; J2704; J3010; J3490; J7030; Q9967

== ENCOUNTER → 2019-08-16 07:48 | Outpatient (BNVA) | payer MEDICARE, SELFPAY | PROVIDERS: Family Provider Nurse Practitioner Family; PCP Registered Nurse; Referring Provider Internal Medicine; Visit Provider Specialist | DX: Z86.73 Personal history of transient ischemic attack (TIA), and cerebral infarction without residual deficits (principal); R00.2 Palpitations; I27.20 Pulmonary hypertension, unspecified | CPT/HCPCS: 99204 ==

== ENCOUNTER → 2019-08-25 13:12 | Outpatient (BNVA) | payer MEDICARE, SELFPAY | PROVIDERS: Family Provider Nurse Practitioner Family; PCP Registered Nurse; Visit Provider Orthopaedic Surgery | DX: S72.141A Displaced intertrochanteric fracture of right femur, initial encounter for closed fracture (principal); S52.501A Unspecified fracture of the lower end of right radius, initial encounter for closed fracture; Z48.89 Encounter for other specified surgical aftercare | CPT/HCPCS: 73110; 73502 ==

== ENCOUNTER 2019-09-02 09:11 | Outpatient (CLI) | payer MEDICARE, SELFPAY ==
[2019-09-02] VITALS (11 sets, daily range): BP systolic 124–149; BP diastolic 70–80; PULSE 91–106; RESP 16–18; TEMP 36.9–37.1; O2SAT 91–100
[2019-09-02] MEDS: acetaminophen 325 mg Tablet 650 MG PO (15:35)
[2019-09-02] MEDS: diphenhydrAMINE 25 mg Capsule PO (15:36)
[2019-09-02] MEDS: sodium chloride 0.9% (100 ml) 100 ML 150 ML ×2 (15:38→17:39)
== END 2019-09-02 20:30 | disposition home or self-care (01) ==
LOC: ONCMED 09:29 → OPMS 09:29 → MEDSURG 09-05 07:36
PROVIDERS: PCP Family Medicine; Visit Provider Nurse Practitioner Family
DX: D64.9 Anemia, unspecified (principal)
CPT/HCPCS: 36415; 36430; 86850; 86900; 86920; P9016

== ENCOUNTER 2019-09-07 12:49 | Emergency (ER) | payer MEDICARE, SELFPAY ==
[2019-09-07 12:30] VITALS: BP 156/93; PULSE 105; RESP 20; TEMP 36.4; O2SAT 100; BMI 25.1
--- NOTE | 2019-09-07 12:57 | XR_ITS ---
WS: [id number] PORTABLE CHEST HISTORY: probable admission; tachycardia COMPARISON: 07/09/2019 Hyperinflated lungs. Scattered ill-defined opacities throughout the RIGHT lung. These are new since t he recent chest CT of 07/13/2019 and probably represent areas of pneumonitis. Pulmonary nodules were n oted on the prior recent CT. Slight elevation of the LEFT hemidiaphragm. No pneumonia. Mild blunting of the LEFT costophrenic angl e. Cardiac size: Mildly enlarged cardiac silhouette. Mediastinum/Aorta: Mild atherosclerosis aorta. Severe osteopenia. XR/XR chest 1V portable [id number] IMPRESSION: 1. New scattered ill-defined opacifications throughout the RIGHT lung likely p neumonitis. 2. Severe chronic emphysema and calcified aorta.
--- NOTE | 2019-09-07 12:57 | XR_ITS ---
WS: [id number] RIGHT FOOT: 3 VIEW(S) TECHNIQUE: AP, oblique and lateral. HISTORY: heel ulcer/infection COMPARISON: None available. No acute fracture or dislocation. Severe osteopenia with severe hammertoe deformities. Marked flexion at the tarsometatarsal joints. No osteolysis identified. No soft tissue abnormality or bone destruction. XR/XR foot RT min 3V* [id number] IMPRESSION: Severe osteopenia and flexion at the metatarsophalangeal joints. No osteomyelit is identified radiographically.
--- NOTE | 2019-09-07 12:59 | W.ED.GENADLT ---
Documented by User: ALEX Bush 09/09/19 07:37 HPI - General Adult General: Chief complaint: General Medical Stated complaint: pressure sores Source: patient, family (sister in law) and other (contacted DPOA (granddaughter) ) Mode of arrival: EMS Limitations: altered mental status History of Present Illness: HPI narrative: Patient is an 83-year-old female who presents to ED today along with her edjxfo-ss-yhb for evaluation for a right foot and multiple buttock/pelvic ulcers. She was referred here from her PCP Liam Palmer for further evaluation after seeing them today. According to the [id number]-ieq, patient had a hip fracture in June that required surgical repair (performed here by Dr. Griggs). Following the repair she was sent to [facility]. Since she has been in the assisted they have noticed a significant decline in patient's overall physical and mental health. The xblxls-[id number]-pwr apparently removed her from the home stating she felt like she was not receiving adequate care. When she returned home the bcbejl-za-hyp noticed a foul necrotic smelling ulcer to her right heel and multiple buttock ulcers. Patient was noted to have suffered a stroke while in the hospital for her hip fracture. She is left with weakness and speech deficits. Because of the CVA and her hip fracture, patient is not ambulatory. Associated symptoms: Deny chest pain, dyspnea, headache(s), nausea or vomiting Review of Systems Const: Denies: fever(s) or chills Card: Denies: chest pain Resp: Denies: dyspnea GI: Denies: abdominal pain, nausea, vomiting or diarrhea : Denies: difficulty voiding or dysuria Musc: Denies: neck pain or back pain Skin/Breast: Reports: other (R foot ulcer/ulcers to buttocks ) Neuro: Reports: difficulty walking (secondary to CVA and surigcal hip repair); Denies: headache(s) [facility] ED PFSH: Medical History (Updated 09/07/19 @ 15:56 by ALEX Bush) COPD (chronic obstructive pulmonary disease) Diabetes Hypertension Family History Other Diabetes Hypertension Social History Smoking and tobacco status: never smoked History of recent travel: No Physical Exam Const: COMMON NORMALS: average body habitus, alert and well nourished GENERAL APPEARANCE: in distress (in pain; states her ulcers are hurting) HENMT: COMMON NORMALS: normocephalic and atraumatic HEAD & SCALP: normocephalic and atraumatic Chest: COMMONS NORMALS: normal inspection of the chest and normal palpation of entire chest wall Resp: COMMON NORMALS: normal respiratory effort AUSCULTATION: rhonchi right lower and diminished lung sounds Cardio: COMMON NORMALS: regular rhythm RATE: tachycardic RHYTHM: regular rhythm GI: COMMON NORMALS: Normal to inspection, nondistended, normoactive bowel sounds present, Soft to palpation, non-tender, No hepatosplenomegaly present and no masses PALPATION: Yes Soft to palpation and Yes No hepatosplenomegaly present Extremity: OTHER: pt has a foul smelling necrotic area to R lateral heel measuring approx 6-7cm x 2cm Neuro: SENSORIUM/ORIENTATION: Yes alert and Yes Orientation impaired Skin: OTHER: pt has erythema to bilateral medial buttocks and throughtout gluteal cleft; she has several stage II ulcers present; she seems excessively tender to these areas; mild non-odorous drainage noted Course ED course: Records from [facility] were obtained and they were very much aware of these ulcers (unlike sister in law who believed she was not receiving any form of care for them). [facility] was involved in the care of these. Vital Signs: Vital signs: Vital Signs Temperature 97.6 F 09/07/19 12:30 Pulse Rate 99 09/07/19 16:26 Respiratory Rate 20 H 09/07/19 16:26 Blood Pressure 149/87 09/07/19 16:26 Pulse Oximetry 100 09/07/19 16:26 MDM - General Adult MDM Narrative: Medical decision making narrative: Patient initially presented to the ER for evaluation for multiple pressure ulcers. In the middle of patient's work-up she decided she no longer wishes to have any form of care and requests that she be placed on hospice. Patient was counselled and understood that not treating her wounds and pneumonia on her CXR would/could result in . She verbalizes understanding of this and again no longer wishes any form of treatment. I spoke to the mixaxd-cp-ooj who accompanied patient as well as the granddaughter both who are on DPOA paperwork. Granddaughter spoke to patient on the phone and told me she seemed to be in her right mind to make this decision. They state they understand patient's decision and will respect her wishes. I will discharge patient home with pain medications. Case management spoke to them and has set patient up with hospice care who will evaluate her in her home tomorrow. Again patient verbalized understanding of not treating her wounds or her right sided pneumonia at this time. She verbalizes understanding of probable from sepsis. Patient does not request treatment at home for the pneumonia at this time either. Lab Data: Labs: Lab Results 09/07/19 09/07/19 09/07/19 Range/Units 14:34 14:34 14:34 WBC 9.1 (4.0-10.0) 10^3/ uL RBC 3.42 L (4.1-5.3) 10^6/u L Hgb 10.1 L (11.5-15.3) g/dL Hct 33.1 L (37.0-47.0) % MCV 96.8 (81-99) fL MCH 29.5 (28.0-34.0) pg MCHC 30.5 (30.0-36.0) g/dL RDW 17.1 H (12.1-15.1) % Plt Count 265 (130-400) 10^3/c mm MPV 10.7 H (7.4-10.4) fL Neut % (Auto) 84.7 % Lymph % (Auto) 8.9 % Alexander % (Auto) 5.6 % Eos % (Auto) 0.2 % Baso % (Auto) 0.1 % Neut # (Auto) 7.7 (1.8-7.7) 10^3/u L Lymph # (Auto) 0.8 (0.8-4.8) 10^3/u L Alexander # (Auto) 0.5 (0.2-0.9) 10^3/u L Eos # (Auto) 0.0 (0.0-0.8) 10^3/u L Baso # (Auto) 0.0 (0.0-0.1) 10^3/u L Nucleated RBC % (a uto) 0 % Nucleated RBCs # 0.0 /100WBC ESR 20 H (0-15) mm/hr Sodium 137 (136-145) mmol/L Potassium 4.7 (3.5-5.1) mmol/L Chloride 103 (98-107) mmol/L Carbon Dioxide 25 (22-29) mmol/L Anion Gap 13.7 (5-19) BUN 22 (8-23) mg/dL Creatinine 0.9 (0.5-0.9) mg/dL Glucose 125 H (65-115) mg/dL Calculated Osmolal ity 282 L (285-295) mOsm/k g Lactate (0.5-2.2) mmol/L Calcium 8.8 (8.5-10.5) mg/dL Total Bilirubin 0.5 (0.15-1.2) mg/dL AST 16 (0-32) U/L ALT 18 (0-33) U/L Alkaline Phosphata se 124 H (35-105) IU/L C-Reactive Protein 36.4 H (0.0-4.9) mg/L Total Protein 5.7 L (6.6-8.7) g/dL Albumin 2.7 L (3.5-5.2) g/dL Globulin 3.0 (1.3-4.6) g/dL 09/07/19 Range/Units 14:34 WBC (4.0-10.0) 10^3/ uL RBC (4.1-5.3) 10^6/u L Hgb (11.5-15.3) g/dL Hct (37.0-47.0) % MCV (81-99) fL MCH (28.0-34.0) pg MCHC (30.0-36.0) g/dL RDW (12.1-15.1) % Plt Count (130-400) 10^3/c mm MPV (7.4-10.4) fL Neut % (Auto) % Lymph % (Auto) % Alexander % (Auto) % Eos % (Auto) % Baso % (Auto) % Neut # (Auto) (1.8-7.7) 10^3/u L Lymph # (Auto) (0.8-4.8) 10^3/u L Alexander # (Auto) (0.2-0.9) 10^3/u L Eos # (Auto) (0.0-0.8) 10^3/u L Baso # (Auto) (0.0-0.1) 10^3/u L Nucleated RBC % (a uto) % Nucleated RBCs # /100WBC ESR (0-15) mm/hr Sodium (136-145) mmol/L Potassium (3.5-5.1) mmol/L Chloride (98-107) mmol/L Carbon Dioxide (22-29) mmol/L Anion Gap (5-19) BUN (8-23) mg/dL Creatinine (0.5-0.9) mg/dL Glucose (65-115) mg/dL Calculated Osmolal ity (285-295) mOsm/k g Lactate 1.1 (0.5-2.2) mmol/L Calcium (8.5-10.5) mg/dL Total Bilirubin (0.15-1.2) mg/dL AST (0-32) U/L ALT (0-33) U/L Alkaline Phosphata se (35-105) IU/L C-Reactive Protein (0.0-4.9) mg/L Total Protein (6.6-8.7) g/dL Albumin (3.5-5.2) g/dL Globulin (1.3-4.6) g/dL Imaging Data^: CXR: Radiologist's impression: [address] [address] XRay Report Signed Patient: Solange Acevedo Unit #: [id number] : 1935 Age/Sex: 83 / F ADM Date: 09/07/19 Loc: ER Room/Bed: Attending Dr: Ordering Provider/Ordering MD: Eufemia Taylor Date of Service: 09/07/19 Procedure(s): XR chest 1V portable [id number] Accession Number(s): [id number] Report Number: [id number] WS: [id number] PORTABLE CHEST HISTORY: probable admission; tachycardia COMPARISON: 07/09/2019 Hyperinflated lungs. Scattered ill-defined opacities throughout the RIGHT lung. These are new since the recent chest CT of 07/13/2019 and probably represent areas of pneumonitis. Pulmonary nodules were noted on the prior recent CT. Slight elevation of the LEFT hemidiaphragm. No pneumonia. Mild blunting of the LEFT costophrenic angle. Cardiac size: Mildly enlarged cardiac silhouette. Mediastinum/Aorta: Mild atherosclerosis aorta. Severe osteopenia. XR/XR chest 1V portable [id number] IMPRESSION: 1. New scattered ill-defined opacifications throughout the RIGHT lung likely pneumonitis. 2. Severe chronic emphysema and calcified aorta. Dictated By: Denise Hutson DO Signed By: Denise Hutson DO Signed Date/Time: 09/07/191402 DD/ 1401 R foot XR: Radiologist's impression: [address] [address] XRay Report Signed Patient: Solange Acevedo Unit #: [id number] : 1935 Age/Sex: 83 / F ADM Date: 09/07/19 Loc: ER Room/Bed: Attending Dr: Ordering Provider/Ordering MD: Eufemia Taylor Date of Service: 09/07/19 Procedure(s): XR foot RT min 3V* [id number] Accession Number(s): [id number] Report Number: [id number] WS: [id number] RIGHT FOOT: 3 VIEW(S) TECHNIQUE: AP, oblique and lateral. HISTORY: heel ulcer/infection COMPARISON: None available. No acute fracture or dislocation. Severe osteopenia with severe hammertoe deformities. Marked flexion at the tarsometatarsal joints. No osteolysis identified. No soft tissue abnormality or bone destruction. XR/XR foot RT min 3V* [id number] IMPRESSION: Severe osteopenia and flexion at the metatarsophalangeal joints. No osteomyelitis identified radiographically. Dictated By: Denise Hutson DO Signed By: Denise Hutson DO Signed Date/Time: 09/07/19 140 DD/ 1400 Discharge Plan Discharge Patient Disposition: Home, Self-Care Clinical Impression: Pressure ulcer of right heel, stage 4, Declining functional status, Bed confinement status Pneumonia Qualifiers: Pneumonia type: due to unspecified organism Laterality: right Lung location: unspecified part of lung Qualified Code(s): J18.9 - Pneumonia, unspecified organism Decubitus ulcer of buttock, stage 2 Qualifiers: Laterality: right Qualified Code(s): L89.312 - Pressure ulcer of right buttock, stage 2 Condition: Stable Prescriptions: New hydrocodone-acetaminophen 5-325 mg tablet 1 tab PO Q4H PRN (Reason: pain) Qty: 20 RF: 0 No Action ondansetron HCl [Zofran] 4 mg tablet 4 mg PO QID PRN (Reason: Nausea) RF: 0 Santyl 250 unit/gram ointment 1 applic TOPICAL DAILY RF: 0 Calcium 500 1 tab PO TID RF: 0 atorvastatin 40 mg Tablet 80 mg PO BEDTIME Qty: 60 RF: 0 clopidogrel 75 mg Tablet 75 mg PO DAILY Qty: 30 RF: 0 aspirin 81 mg Tablet,Delayed Release (Dr/Ec) 81 mg PO DAILY Qty: 30 RF: 0 pantoprazole 40 mg Tablet,Delayed Release (Dr/Ec) 40 mg PO DAILY Qty: 30 RF: 0 tramadol 50 mg Tablet 50 mg PO Q6H PRN (Reason: Moderate Pain) Qty: 12 RF: 0 losartan 50 mg Tablet 50 mg PO DAILY RF: 0 hydrocodone-acetaminophen 5-325 mg Tablet 1 tab PO BID PRN (Reason: Pain) RF: 0 acetaminophen 650 mg Tablet Extended Release 650 mg PO Q8H PRN (Reason: Pain) RF: 0 meclizine 25 mg Tablet 25 mg PO BID PRN (Reason: Dizziness) RF: 0 Combivent Respimat 20-100 mcg/actuation Mist 1 puff INHALATION Q6H PRN (Reason: Shortness Of Breath) RF: 0 Discharge Orders: Discharge Order (Routine); Ordered 09/07/19 Ordered By: Eufemia Taylor Referrals: Karen Palmer, COMBAT SYSTEMS OFFICER [Primary Care Provider] - Activity Restrictions/Additional Instructions: As we have spoken you have declined medical care and admission on today's visit. You have stated you no longer wish to receive medical care and wish to be placed on hospice. This decision was discussed with the avkamb-it-vei and granddaughter who are both DPOAs of your care. Case management has spoken to you and hospice will evaluate you tomorrow in your home. Discharge Date/Time: 09/07/19 16:47 Coding Level of Care Code ED Clerk Carrier for Chg Fwd Exam Detailed Documented by User: Shauna Martínez 09/09/19 19:17 HPI - General Adult General: Chief complaint: General Medical Stated complaint: pressure sores PFSH ED PFSH: Medical History (Updated 09/07/19 @ 15:56 by ALEX Bush) COPD (chronic obstructive pulmonary disease) Diabetes Hypertension Family History Other Diabetes Hypertension Social History Smoking and tobacco status: never smoked History of recent travel: No Course Vital Signs: Vital signs: Vital Signs Temperature 97.6 F 09/07/19 12:30 Pulse Rate 99 09/07/19 16:26 Respiratory Rate 20 H 09/07/19 16:26 Blood Pressure 149/87 09/07/19 16:26 Pulse Oximetry 100 09/07/19 16:26 MDM - General Adult Lab Data: Labs: Lab Results 09/07/19 09/07/19 09/07/19 Range/Units 14:34 14:34 14:34 WBC 9.1 (4.0-10.0) 10^3/ uL RBC 3.42 L (4.1-5.3) 10^6/u L Hgb 10.1 L (11.5-15.3) g/dL Hct 33.1 L (37.0-47.0) % MCV 96.8 (81-99) fL MCH 29.5 (28.0-34.0) pg MCHC 30.5 (30.0-36.0) g/dL RDW 17.1 H (12.1-15.1) % Plt Count 265 (130-400) 10^3/c mm MPV 10.7 H (7.4-10.4) fL Neut % (Auto) 84.7 % Lymph % (Auto) 8.9 % Alexander % (Auto) 5.6 % Eos % (Auto) 0.2 % Baso % (Auto) 0.1 % Neut # (Auto) 7.7 (1.8-7.7) 10^3/u L Lymph # (Auto) 0.8 (0.8-4.8) 10^3/u L Alexander # (Auto) 0.5 (0.2-0.9) 10^3/u L Eos # (Auto) 0.0 (0.0-0.8) 10^3/u L Baso # (Auto) 0.0 (0.0-0.1) 10^3/u L Nucleated RBC % (a uto) 0 % Nucleated RBCs # 0.0 /100WBC ESR 20 H (0-15) mm/hr Sodium 137 (136-145) mmol/L Potassium 4.7 (3.5-5.1) mmol/L Chloride 103 (98-107) mmol/L Carbon Dioxide 25 (22-29) mmol/L Anion Gap 13.7 (5-19) BUN 22 (8-23) mg/dL Creatinine 0.9 (0.5-0.9) mg/dL Glucose 125 H (65-115) mg/dL Calculated Osmolal ity 282 L (285-295) mOsm/k g Lactate (0.5-2.2) mmol/L Calcium 8.8 (8.5-10.5) mg/dL Total Bilirubin 0.5 (0.15-1.2) mg/dL AST 16 (0-32) U/L ALT 18 (0-33) U/L Alkaline Phosphata se 124 H (35-105) IU/L C-Reactive Protein 36.4 H (0.0-4.9) mg/L Total Protein 5.7 L (6.6-8.7) g/dL Albumin 2.7 L (3.5-5.2) g/dL Globulin 3.0 (1.3-4.6) g/dL 09/07/19 Range/Units 14:34 WBC (4.0-10.0) 10^3/ uL RBC (4.1-5.3) 10^6/u L Hgb (11.5-15.3) g/dL Hct (37.0-47.0) % MCV (81-99) fL MCH (28.0-34.0) pg MCHC (30.0-36.0) g/dL RDW (12.1-15.1) % Plt Count (130-400) 10^3/c mm MPV (7.4-10.4) fL Neut % (Auto) % Lymph % (Auto) % Alexander % (Auto) % Eos % (Auto) % Baso % (Auto) % Neut # (Auto) (1.8-7.7) 10^3/u L Lymph # (Auto) (0.8-4.8) 10^3/u L Alexander # (Auto) (0.2-0.9) 10^3/u L Eos # (Auto) (0.0-0.8) 10^3/u L Baso # (Auto) (0.0-0.1) 10^3/u L Nucleated RBC % (a uto) % Nucleated RBCs # /100WBC ESR (0-15) mm/hr Sodium (136-145) mmol/L Potassium (3.5-5.1) mmol/L Chloride (98-107) mmol/L Carbon Dioxide (22-29) mmol/L Anion Gap (5-19) BUN (8-23) mg/dL Creatinine (0.5-0.9) mg/dL Glucose (65-115) mg/dL Calculated Osmolal ity (285-295) mOsm/k g Lactate 1.1 (0.5-2.2) mmol/L Calcium (8.5-10.5) mg/dL Total Bilirubin (0.15-1.2) mg/dL AST (0-32) U/L ALT (0-33) U/L Alkaline Phosphata se (35-105) IU/L C-Reactive Protein (0.0-4.9) mg/L Total Protein (6.6-8.7) g/dL Albumin (3.5-5.2) g/dL Globulin (1.3-4.6) g/dL Discharge Plan Discharge Patient Disposition: Home, Self-Care Clinical Impression: Pressure ulcer of right heel, stage 4, Declining functional status, Bed confinement status Pneumonia Qualifiers: Pneumonia type: due to unspecified organism Laterality: right Lung location: unspecified part of lung Qualified Code(s): J18.9 - Pneumonia, unspecified organism Decubitus ulcer of buttock, stage 2 Qualifiers: Laterality: right Qualified Code(s): L89.312 - Pressure ulcer of right buttock, stage 2 Condition: Stable Prescriptions: New hydrocodone-acetaminophen 5-325 mg tablet 1 tab PO Q4H PRN (Reason: pain) Qty: 20 RF: 0 No Action ondansetron HCl [Zofran] 4 mg tablet 4 mg PO QID PRN (Reason: Nausea) RF: 0 Santyl 250 unit/gram ointment 1 applic TOPICAL DAILY RF: 0 Calcium 500 1 tab PO TID RF: 0 atorvastatin 40 mg Tablet 80 mg PO BEDTIME Qty: 60 RF: 0 clopidogrel 75 mg Tablet 75 mg PO DAILY Qty: 30 RF: 0 aspirin 81 mg Tablet,Delayed Release (Dr/Ec) 81 mg PO DAILY Qty: 30 RF: 0 pantoprazole 40 mg Tablet,Delayed Release (Dr/Ec) 40 mg PO DAILY Qty: 30 RF: 0 tramadol 50 mg Tablet 50 mg PO Q6H PRN (Reason: Moderate Pain) Qty: 12 RF: 0 losartan 50 mg Tablet 50 mg PO DAILY RF: 0 hydrocodone-acetaminophen 5-325 mg Tablet 1 tab PO BID PRN (Reason: Pain) RF: 0 acetaminophen 650 mg Tablet Extended Release 650 mg PO Q8H PRN (Reason: Pain) RF: 0 meclizine 25 mg Tablet 25 mg PO BID PRN (Reason: Dizziness) RF: 0 Combivent Respimat 20-100 mcg/actuation Mist 1 puff INHALATION Q6H PRN (Reason: Shortness Of Breath) RF: 0 Discharge Orders: Discharge Order (Routine); Ordered 09/07/19 Ordered By: Eufemia Taylor Referrals: Karen Palmer, COMBAT SYSTEMS OFFICER [Primary Care Provider] - Activity Restrictions/Additional Instructions: As we have spoken you have declined medical care and admission on today's visit. You have stated you no longer wish to receive medical care and wish to be placed on hospice. This decision was discussed with the mazrot-qd-izw and granddaughter who are both DPOAs of your care. Case management has spoken to you and hospice will evaluate you tomorrow in your home. Discharge Date/Time: 09/07/19 16:47 Coding Level of Care Code ED Clerk Carrier for Chg Fwd Exam Detailed
[2019-09-07 13:18] VITALS: RESP 16
[2019-09-07] MEDS: ondansetron 2 mg/ML SDV 2 mL 4 MG IVP (13:18)
[2019-09-07] MEDS: morphine 4 mg/mL SDV 1 mL IVP (13:18)
[2019-09-07 14:43] LABS: Basophils % 0.1 %; Eosinophils % 0.2 %; Hematocrit 33.1 % (37.0-47.0); Hemoglobin 10.1 g/dL (11.5-15.3); Lymphocytes # 0.8 10^3/uL (0.8-4.8); Lymphocytes % 8.9 %; Mean Corpuscular HGB Conc 30.5 g/dL (30.0-36.0); Mean Corpuscular Hemoglobin 29.5 pg (28.0-34.0); Mean Corpuscular Volume 96.8 fL (81-99); Mean Platelet Volume 10.7 fL (7.4-10.4); Monocytes # 0.5 10^3/uL (0.2-0.9); Monocytes % 5.6 %; Neutrophils # 7.7 10^3/uL (1.8-7.7); Neutrophils % 84.7 %; Nucleated Red Blood Cells % 0 %; Platelet Count 265 10^3/cmm (130-400); Red Blood Count 3.42 10^6/uL (4.1-5.3); Red Cell Distribution Width 17.1 % (12.1-15.1); White Blood Count 9.1 10^3/uL (4.0-10.0)
[2019-09-07 15:14] LABS: Lactate (Lactic Acid level) 1.1 mmol/L (0.5-2.2)
[2019-09-07 15:16] LABS: Alanine Aminotransferase 18 U/L (0-33); Albumin Level 2.7 g/dL (3.5-5.2); Alkaline Phosphatase 124 IU/L (35-105); Anion Gap 13.7 (5-19); Aspartate Amino Transferase 16 U/L (0-32); Blood Urea Nitrogen 22 mg/dL (8-23); C Reactive Protein 36.4 mg/L (0.0-4.9); Calcium 8.8 mg/dL (8.5-10.5); Carbon Dioxide 25 mmol/L (22-29); Chloride 103 mmol/L (98-107); Glucose 125 mg/dL (65-115); Osmolality Calculated 282 mOsm/kg (285-295); Potassium 4.7 mmol/L (3.5-5.1); Sodium 137 mmol/L (136-145); Total Bilirubin 0.5 mg/dL (0.15-1.2); Total Protein 5.7 g/dL (6.6-8.7)
[2019-09-07 15:35] LABS: Erythrocyte Sedimentation Rate 20 mm/hr (0-15)
--- NOTE | 2019-09-07 16:15 | PC.NURSE ---
went to [facility] and patient refused all care, patient was set up for hospice care
[2019-09-07 16:26] VITALS: BP 149/87; PULSE 99; RESP 20; O2SAT 100
--- NOTE | 2019-09-08 09:59 | DCPLANNER ---
late entry - care manager was asked by ED physician, ALEX Taylor, to speak with patient about getting set up on hospice. care manager spoke with patient and family that was in the room about getting established on hospice. Patient and family agreed to use the company [facility]. care manager gave patient the Patient Choice Letter to sign, and gave patient the performance data to review. care manager called [facility], spoke with Latia, was told that the company would call patient and make arrangements to meet patient and family in patients home on 09.09.19. care manager faxed patients information to the hospice company. care manager was also asked to arrange for transportation home for patient. care manager had ED provider sign PCS form, and had it faxed to [facility] for transportation services.
== END 2019-09-07 16:47 | disposition home or self-care (01) ==
PROVIDERS: Emergency Provider Physician Assistant; PCP Registered Nurse
DX: L89.614 Pressure ulcer of right heel, stage 4 (principal); L89.312 Pressure ulcer of right buttock, stage 2; R53.81 Other malaise; Z74.01 Bed confinement status; J18.9 Pneumonia, unspecified organism; Z79.82 Long term (current) use of aspirin; Z79.02 Long term (current) use of antithrombotics/antiplatelets; J44.9 Chronic obstructive pulmonary disease, unspecified; E11.9 Type 2 diabetes mellitus without complications; I10 Essential (primary) hypertension
CPT/HCPCS: 12345; 36415; 71045; 73630; 80053; 83605; 85025; 85651; 86140; 87040; 96361; 96374; 96375; 96376; 99281; 99284; J2270; J2405